=== PATIENT | male | born 1985 | race Caucasian/White ===

== ENCOUNTER 2024-08-03 02:17 | Inpatient (IN) | payer OTHER, SELFPAY ==
[2024-08-03] VITALS (43 sets, daily range): BP systolic 116–155; BP diastolic 81–115; PULSE 104–127; RESP 18–39; TEMP 36.4–36.9; O2SAT 92–100; BMI 27.9
--- NOTE | ~2024-08-03 | US_ITS ---
EXAMINATION: US thoracentesis DATE: 08/04/2024 11:21 INDICATION: Rectal large right pleural effusion TECHNIQUE: The procedure and its risks and benefits were discussed with the patient. Potential risks discussed included bleeding, infection, and pneumothorax. The patient understood the risks and agreed to proceed. The skin was prepped and draped in sterile fashion. 1% lidocaine was used for local anes thesia. Under ultrasound guidance, a 5 Fr catheter with trochar was advanced into the right pleural e ffusion. Fluid was aspirated. The catheter was removed, and a dressing was applied. There were no imm ediate complications. FINDINGS: Ultrasound images demonstrate a moderate-sized right pleural effusion and the catheter within the flu id. IMPRESSION: 1. Successful ultrasound-guided thoracentesis yielding 1100 mL of clear yellow fluid. Reviewed, dictated and finalized at location A.
--- NOTE | ~2024-08-03 | XR_ITS ---
Portable chest x-ray Comparison: 08/03/2024 Clinical History: Labored breathing Findings: There is hazy central pulmonary airspace disease bilaterally, compatible with mild to mode rate central pulmonary edema. No definite pleural effusions. Cardiomediastinal silhouette is stable. Bones and soft tissues are unremarkable. Impression: Mild to moderate central pulmonary edema pattern. Reviewed, dictated and finalized at location . Impression: Mild to moderate central pulmonary edema pattern.
--- NOTE | ~2024-08-03 | XR_ITS ---
Portable chest x-ray Comparison: None Clinical History: Dyspnea Findings: Possible minimal pulmonary edema pattern centrally. Cardiomediastinal silhouette is enlar ged. Bones and soft tissues are unremarkable. Impression: Possible minimal central pulmonary edema. Cardiomegaly. Reviewed, dictated and finalized at [facility]. Impression: Possible minimal central pulmonary edema. Cardiomegaly.
--- NOTE | ~2024-08-03 | CT_ITS ---
Clinical Indication: Tachycardia, abnormal LFTs CT Scan of the Chest, Abdomen, and Pelvis with Contrast: Technique: Contiguous sections were acquired throughout the chest, abdomen, and pelvis after intraven ous administration of 100 cc of Omnipaque 350. Dose reduction technique was used on this scan by nadja diazing automated exposure control and iterative reconstruction technique. The dose-length product (DL P) was 872.04 mGy-cm. Findings: There is no evidence of any significant mediastinal, hilar or axillary lymphadenopathy. The mediastin al soft tissues appear normal. No pulmonary embolus seen. No aortic aneurysm. No pericardial effusion . Moderate to large right pleural effusion, and moderate left pleural effusion are present. There is pa tchy groundglass opacity and airspace consolidation in the aerated lungs. Severe diffuse hepatic steatosis present. The spleen, pancreas, gallbladder, adrenals and kidneys are within normal limits. No evidence of aortic aneurysm. No lymphadenopathy. Questionable mild wall thickening of the sigmoid colon. No distinct inflammatory change evident. No b owel obstruction. No abscess or free air. Urinary bladder is unremarkable. No pelvic mass seen. No ascites. Impression: Moderate to large right pleural effusion and moderate left pleural effusion. Patchy groundglass opacity and airspace consolidation. Lungs. Findings likely represent pulmonary luba ma. Correlate clinically for pneumonia. Severe hepatic steatosis. Questionable mild wall thickening sigmoid colon versus underdistention. Correlate for infectious/infl ammatory colitis. Reviewed, dictated and finalized at [facility]. Impression: Moderate to large right pleural effusion and moderate left pleural effusion. Patchy groundglass opacity and airspace consolidation. Lungs. Findings likely r epresent pulmonary edema. Correlate clinically for pneumonia. Severe hepatic steatosis. Questionable mild wall thickening sigmoid colon versus underdistention. Correla te for infectious/inflammatory colitis.
--- NOTE | ~2024-08-03 | US_ITS ---
Limited ABDOMINAL ULTRASOUND (Doppler ultrasound interrogation techniques used as needed for this exa m.) Ordering provider: Pola Bar MD History: . Elevated LFTs . Comparison: None. FINDINGS: PANCREAS: Heterogeneous and partially visualized. PORTAL VEIN: Hepatopedal flow demonstrated. LIVER: Echogenic. Measures 15.4 cm. Cyst is seen measures 1 x 0.8 x 1 cm. Fat sparing area is seen an terior to the gallbladder. No focal hepatic lesions or perihepatic fluid collections are identified. BILIARY DUCTS: No intra or extrahepatic biliary dilation. Common bile duct measures 4.8 mm in diamete r which is normal for patient's age. GALLBLADDER: Normal. No stones, sludge, gallbladder wall thickening or pericholecystic fluid. Wall th icknesses 2.4 mm. Negative sonographic Womack's sign. IVC: Patent. FREE FLUID: None visualized within the upper abdomen. Right pleural effusion. IMPRESSION: Fat infiltration of the liver. Contracted gallbladder with thickened wall. Cholecystitis cannot be ex cluded. Clinical correlation advised. Otherwise, normal limited abdominal ultrasound. Reviewed, dictated and finalized at location A. IMPRESSION: Fat infiltration of the liver. Contracted gallbladder with thickened wall. Chol ecystitis cannot be excluded. Clinical correlation advised. Otherwise, normal l imited abdominal ultrasound.
--- NOTE | ~2024-08-03 | XR_ITS ---
[id number] Ordering provider: Pola Bar MD History: 39 years Male with . post thora . Comparison: None. FINDINGS: MEDIASTINUM: The cardiac silhouette is slightly enlarged. LUNGS: No infiltrates, effusions or pneumothorax. OTHER: No free air under the diaphragm. IMPRESSION: No acute cardiopulmonary pathology. Reviewed, dictated and finalized at location A.
--- NOTE | 2024-08-03 02:19 | ECG_ITS ---
Test Date: 2024-08-03 02:26:58 Measurements Intervals [place] Rate: 118 P: 29 [place]: 142 QRS: 39 QRSD: 94 T: 58 QT: 316 QTc: 443 Interpretive Statements SINUS TACHYCARDIA BORDERLINE R WAVE PROGRESSION, ANTERIOR LEADS BORDERLINE ST-T WAVE ABNORMALITY- INF/LAT LEADS BASELINE ARTIFACT- I, II, III, AVR, AVL, AVF, V4-V5 ABNORMAL ECG No previous ECG available for comparison Electronically Signed On 08-03-2024 07:11:16 CDT by Ganga Thapa D.O.
--- OUTSIDE RECORDS SUMMARY | 2024-08-03 02:20 | XMS_ITS | Patient Health Record ---
Author Organization [facility] Address [address] [facility] [address] [place] [address] Care Team Providers Care Scientific Artist Name Role Phone Brigid Doyle Primary Care Provider [phone] Reason For Referral No Information Plan Of Treatment No Information Insurance Providers Payer Name Payer Address Payer Phone Subscriber Number Group Number Insured Name Patient Relationship to Insured Coverage Start Date Coverage End Date Medicaid FQHC [address] [place], [place] [id number] Gabe Castillo Self - patient is the insured 1 Medicaid FFS [address], [place] [id number] Gabe Castillo Self - patient is the insured 1 Medicaid Nonbillable [address], [place] [id number] Gabe Castillo Self - patient is the insured 1
--- OUTSIDE RECORDS SUMMARY | 2024-08-03 02:20 | XMS_ITS | Continuity of Care Document ---
Author Organization [facility] Address [address] [place] [address] [place] [address] Phone Care Team Providers Care Microbiology Lab Analyst Name Role Phone Rodney Orona MD Unavailable Unavailable Allergies, Adverse Reactions, Alerts Substance Reaction Status Criticality No Known Allergies Active No Inform ation Medications Medication Instructions Dosage Effective Dates (start - stop) Status Comments Cipro 500 mg tablet take 1 tablet (500MG ) by oral route every 12 hours 500 MG - Active buspirone 7.5 mg tablet take 1 tablet (7.5MG) by oral route 2 times every day 7.5 MG - Active Procedures Procedure Date PREV VISIT, NEW, AGE 18-39 Advance Directives Directive Yes / No Effective Date File Name No Information Encounters Encounter Description Practice Location Reason(s) For Visit Diagnoses Date Provider Providers Copied on Encounter PREV VISIT, NEW, AGE 18-39 [facility], [address] [facility] [place], [id number], [place] tel:[phone] [facility] Physical (chief complaint) Routine Medical ExamRoutine Medical Exam Yeyo Stevens. [address] [facility] [place], [id number], [place]. tel:[phone] Family History Family Member Type Diagnosis Age At Onset Father Problem (finding) Stroke 68 Sister Problem (finding) Alive and well Father Problem (finding) Cancer -colon 56 Father Problem (finding) Coronary artery disease 55 Mother Problem (finding) Stroke 55 Payers Payer name Insurance type Covered libertarian ID Authoriza tion(s) No Information Social History Type Description Quantity Date Captured Comments Alcohol Use Details 4 beers daily Caffeine Use Details Unknown Tobacco Use Status No Information Smoking Status Current every day smoker Smoking Tobacco Use Details Cigarette: No Details Available Cigarette: 0 Packs per day Sex Male Vital Signs Date / Time: Height Weight BMI Pulse Rate Blood Pressure Temperature Respiratory Rate Body Surface Area Head Circumference BMI percentile Pulse Ox Inhaled Ox 5:18 PM 65.00 in 148.00 lbs 24.6 3 kg/m eter (2) 77 /min 135/80 mm[Hg] 98.4 F 16 /min Chief Complaint And Reason For Visit From encounter dated '12/01/2013 17:11'. Physical (chief complaint) Plan Of Treatment Date Type Action Status Goal Tobacco cessation counseling completed Referral Ordered: Pain Management ordered Referral Ordered: Referral: Pain Management. Evaluate and treat. ordered Referral Ordered: LUMBAR XRAY AP AND LAT ONLY ordered History Of Present Illness Encounter Date Complaint History Of Prese nt Illness No Information Instructions Date Instruction Additional Infor mation No Information Assessments Type Assessment Date No Information Mental Status Date Cognitive Assessment Orientation - Grabill ed to time, place, person, situation.
--- NOTE | 2024-08-03 02:31 | ED.SOB ---
HPI - SOB/Dyspnea General Chief Complaint: Shortness of Breath/Dyspnea Stated Complaint: sob, pedal edema Time Seen by Provider: 08/03/24 02:19 History of Present Illness HPI Narrative: Patient states he was in normal state of health until about 3 weeks ago, when he came down with a bad cough, and since then has had persistent shortness of breath, swelling to his legs and some to his abdomen. Denies any pain. Does report occasional methamphetamine use and prior history of IV heroin use but last IV drug use was 10 years ago. Never had any personal history of heart, liver, or kidney disease, though he does report heavy alcohol use, family history of heart disease. Related Data Allergies Allergy/AdvReac Type Severity Reaction Status Date / Time No Known Allergies Allergy Unknown Verified 08/03/24 03:18 Review of Systems Review of Systems: All systems reviewed & are unremarkable except as noted in HPI and below Exam Narrative: EXAMINATION OF ORGAN SYSTEMS/BODY AREAS: Constitutional: Vital signs per nursing GENERAL: Slightly dyspneic HEAD: Normal with no signs of head trauma. EYES: Some injected conjunctiva, right pterygium ENT: Hearing grossly intact LUNGS: Slightly tachypneic, wheezing HEART: Tachycardic ABD: [Soft], [nontender to palpation], distended EXT: Normal range of motion, bilateral lower extremity edema SKIN: Some bruising bilateral knees NEURO: [Alert and oriented x 3. No gross focal sensory or strength deficits.] PSYCH: Normal affect Course Vital Signs Vital signs: Vital Signs Temperature 98.4 F 08/03/24 02:21 Pulse Rate 118 H 08/03/24 02:21 Respiratory Rate 20 08/03/24 02:21 Blood Pressure 144/115 H 08/03/24 02:21 Pulse Oximetry 100 08/03/24 02:21 Oxygen Delivery Room Air 08/03/24 02:21 Temperature 98.0 F 08/03/24 05:05 Pulse Rate 112 H 08/03/24 06:38 Respiratory Rate 24 H 08/03/24 06:38 Blood Pressure 131/108 H 08/03/24 06:38 Pulse Oximetry 95 08/03/24 06:38 Oxygen Delivery Room Air 08/03/24 02:24 MDM - SOB/Dyspnea MDM Narrative Medical decision making narrative: 39-year-old male presenting with shortness of breath, started after a cough 3 weeks ago, also having increased abdominal distention and bilateral lower extremity swelling. No prior medical history but he does admit to heavy daily alcohol use, remote history of IV drug use, and occasional methamphetamine use. On exam he is tachycardic, slightly dyspneic, but otherwise does not appear to be in distress, denies any pain. I have a very wide differential including possible infectious cause such as pneumonia or viral myocarditis or potentially endocarditis though patient IV drug use is extremely remote; new onset heart failure from potential meth or alcoholic cardiomyopathy; cirrhosis or kidney failure. He is also wheezing and has smoking history so also considered COPD. EKG on my independent interpretation shows sinus tachycardia rate 118, MT 142, QRS 94, QTC 443, no ST elevations depressions or signs of acute ischemia or arrhythmia. Xopenex given. Chest x-ray on my independent interpretation showing some possible cardiomegaly and pulm vasc congestion. Labs concerning for elevated troponin 0.07 however patient without chest pain and EKG without acute ischemic changes, I suspect this is more likely from new onset heart failure with BNP over 12,000. LFTs also quite elevated with AST 700 ALT 350 consistent with likely alcoholic hepatitis. A slightly elevated white count and this with the tachycardia and slight cough I did feel it necessary to start broad-spectrum antibiotics at this time. I did feel CT warranted for further evaluation and my independent interpretation there is large amount of pulmonary edema bilaterally, I do feel patient would benefit from diuresis. Lasix ordered. It this is also his 1st time coming down on the alcohol use so I did also opt to treat for possible withdrawal. Librium given, he was still uncomfortable, I did order phenobarbital. Discussed all findings and plan with patient and he is agreeable to admission. After phenobarb he feels much better. Resting comfortably in bed. Discussed with hospitalist for admission, consult placed to GI and Cardiology. Lab Data 08/03/24 02:28 08/03/24 02:28 Labs: Lab Results 08/03/24 08/03/24 08/03/24 Range/Units 02:28 02:42 02:43 WBC 11.3 H (4.5-10.0) K/mm3 RBC 4.52 L (4.6-6.20) M/mm3 Hgb 15.0 (14.0-18.0) g/dL Hct 46.5 (42.0-52.0) % MCV 102.9 H (80-100) fl MCH 33.2 (26-34) pg MCHC 32.3 (32-36) g/dl RDW 14.3 (11.5-14.5) % Plt Count 280 (150-375) k/mm3 MPV 12.2 H (7.4-10.4) fl Immature Gran % (Auto) 0.8 H (0-0.5) % Neut % (Auto) 80.7 H (45.5-73.1) % Lymph % (Auto) 8.5 L (18.3-44.2) % [place] % (Auto) 9.5 H (2.6-8.5) % Eos % (Auto) 0.0 (0-4.4) % Baso % (Auto) 0.5 (0.2-1.2) % Lymph # (Auto) 0.96 (0.9-3.2) K/mm3 [place] # (Auto) 1.1 H (0.1-0.6) K/mm3 Eos # (Auto) 0.0 (0-0.3) K/mm3 Baso # (Auto) 0.1 (0.0-0.1) K/mm3 Abs Immat Gran (auto) 0.09 H (0.00-0.031) K/mm3 Absolute Neuts (auto) 9.1 H (1.3-6.7) K/mm3 Absolute Nucleated RBC 0.020 H (0.0-0.012) K/mm3 Nucleated RBC % 0.2 (0.0-0.2) % PT 16.7 H (11.1-14.7) Seconds INR 1.4 APTT 27.2 (22.3-36.8) Seconds Sodium 132 L (137-145) mmol/L Potassium 4.3 (3.4-5.0) mmol/L Chloride 96 L (98-107) mmol/L Carbon Dioxide 20 L (22-30) mmol/L Anion Gap 16 H (4-12) mmol/L BUN 26 H (9-20) mg/dL Creatinine 1.09 (0.7-1.3) mg/dL Estim Creat Clear Calc 81 ml/min Estimated GFR > 60 (59 - ) Glucose 107 (65-110) mg/dL Lactic Acid 4.4 H* (0.7-2.0) mmol/L Calcium 8.7 (8.4-10.2) mg/dL Magnesium 2.1 (1.6-2.3) mg/dL Total Bilirubin 3.5 H (0.2-1.3) mg/dL AST 697 H (17-59) U/L ALT 352 H (6-50) U/L Alkaline Phosphatase 148 H (38-126) U/L Ammonia 15 (9-30) umol/L Troponin I 0.071 H* (0.000-0.034) ng/mL NT-Pro-B Natriuret Pep 95129 H (19.9-100) pg/mL Total Protein 6.6 (6.3-8.2) g/dL Albumin 3.8 (3.5-5.1) g/dL Urine Opiates Screen (Negative) Urine Methadone Screen (Negative) Ur Barbiturates Screen (Negative) Ur Phencyclidine Scrn (Negative) Ur Amphetamine Screen (Negative) U Benzodiazepines Scrn (Negative) Urine Cocaine Screen (Negative) U Cannabinoids Screen (Negative) Ethyl Alcohol 93 (<10) mg/dL Hepatitis A IgM Ab Negative (Negative) Hep Bs Antigen Negative (Negative) Hep B Core IgM Ab Negative (Negative) Hepatitis C Ab Screen Negative (Negative) HIV 1&2 Ab/P24 Ag 4thGn Negative (Negative) 08/03/24 Range/Units 03:50 WBC (4.5-10.0) K/mm3 RBC (4.6-6.20) M/mm3 Hgb (14.0-18.0) g/dL Hct (42.0-52.0) % MCV (80-100) fl MCH (26-34) pg MCHC (32-36) g/dl RDW (11.5-14.5) % Plt Count (150-375) k/mm3 MPV (7.4-10.4) fl Immature Gran % (Auto) (0-0.5) % Neut % (Auto) (45.5-73.1) % Lymph % (Auto) (18.3-44.2) % [place] % (Auto) (2.6-8.5) % Eos % (Auto) (0-4.4) % Baso % (Auto) (0.2-1.2) % Lymph # (Auto) (0.9-3.2) K/mm3 [place] # (Auto) (0.1-0.6) K/mm3 Eos # (Auto) (0-0.3) K/mm3 Baso # (Auto) (0.0-0.1) K/mm3 Abs Immat Gran (auto) (0.00-0.031) K/mm3 Absolute Neuts (auto) (1.3-6.7) K/mm3 Absolute Nucleated RBC (0.0-0.012) K/mm3 Nucleated RBC % (0.0-0.2) % PT (11.1-14.7) Seconds INR APTT (22.3-36.8) Seconds Sodium (137-145) mmol/L Potassium (3.4-5.0) mmol/L Chloride (98-107) mmol/L Carbon Dioxide (22-30) mmol/L Anion Gap (4-12) mmol/L BUN (9-20) mg/dL Creatinine (0.7-1.3) mg/dL Estim Creat Clear Calc ml/min Estimated GFR (59 - ) Glucose (65-110) mg/dL Lactic Acid (0.7-2.0) mmol/L Calcium (8.4-10.2) mg/dL Magnesium (1.6-2.3) mg/dL Total Bilirubin (0.2-1.3) mg/dL AST (17-59) U/L ALT (6-50) U/L Alkaline Phosphatase (38-126) U/L Ammonia (9-30) umol/L Troponin I (0.000-0.034) ng/mL NT-Pro-B Natriuret Pep (19.9-100) pg/mL Total Protein (6.3-8.2) g/dL Albumin (3.5-5.1) g/dL Urine Opiates Screen Negative (Negative) Urine Methadone Screen Negative (Negative) Ur Barbiturates Screen Negative (Negative) Ur Phencyclidine Scrn Negative (Negative) Ur Amphetamine Screen Positive A (Negative) U Benzodiazepines Scrn Negative (Negative) Urine Cocaine Screen Negative (Negative) U Cannabinoids Screen Negative (Negative) Ethyl Alcohol (<10) mg/dL Hepatitis A IgM Ab (Negative) Hep Bs Antigen (Negative) Hep B Core IgM Ab (Negative) Hepatitis C Ab Screen (Negative) HIV 1&2 Ab/P24 Ag 4thGn (Negative) Critical Care Time Critical Care Time Critical Care Time: Yes Total Critical Care Time: 31 Discharge Plan Discharge Clinical Impression: Alcoholic hepatitis, New onset of congestive heart failure, Methamphetamine abuse, Pulmonary edema Patient Disposition: Still a Patient Condition: Serious Patient Language: Mohawk Follow-up/Referrals: UNKNOWN,DOCTOR [Non-Staff] -
--- OUTSIDE RECORDS SUMMARY | 2024-08-03 02:38 | XMS_ITS | Continuity of Care Document ---
Author Organization [facility] Address [address] [place] [address] [place] [address] Phone Care Team Providers Care Family Resource Coordinator Name Role Phone Rodney Orona MD Unavailable Unavailable Allergies, Adverse Reactions, Alerts Substance Reaction Status Criticality No Known Allergies Active No Inform ation Medications Medication Instructions Dosage Effective Dates (start - stop) Status Comments buspirone 7.5 mg tablet take 1 tablet (7.5MG) by oral route 2 times every day 7.5 MG - Active Cipro 500 mg tablet take 1 tablet (500MG ) by oral route every 12 hours 500 MG - Active Procedures Procedure Date PREV VISIT, NEW, AGE 18-39 Advance Directives Directive Yes / No Effective Date File Name No Information Encounters Encounter Description Practice Location Reason(s) For Visit Diagnoses Date Provider Providers Copied on Encounter PREV VISIT, NEW, AGE 18-39 [facility], [address] [place], [id number], [place] tel:[phone] [facility] Physical (chief complaint) Routine Medical ExamRoutine Medical Exam Yeyo Stevens. [address] [facility] [place], [id number], [place]. tel:[phone] Family History Family Member Type Diagnosis Age At Onset Father Problem (finding) Stroke 68 Sister Problem (finding) Alive and well Father Problem (finding) Cancer -colon 56 Father Problem (finding) Coronary artery disease 55 Mother Problem (finding) Stroke 55 Payers Payer name Insurance type Covered green party ID Authoriza tion(s) No Information Social History [...] Mental Status Date Cognitive Assessment Orientation - [place] ed to time, place, person, situation.
[2024-08-03 02:51] LABS: Basophils Absolute Auto 0.1 K/mm3 (0.0-0.1); Basophils Percent Auto 0.5 % (0.2-1.2); Hematocrit 46.5 % (42.0-52.0); Immature Granulocyte Absolute 0.09 K/mm3 (0.00-0.031); Immature Granulocyte Percent A 0.8 % (0-0.5); Lymphocytes Absolute Auto 0.96 K/mm3 (0.9-3.2); Lymphocytes Percent Auto 8.5 % (18.3-44.2); Mean Corpuscular HGB Conc 32.3 g/dl (32-36); Mean Corpuscular Hemoglobin 33.2 pg (26-34); Mean Corpuscular Volume 102.9 fl (80-100); Mean Platelet Volume 12.2 fl (7.4-10.4); Monocytes Absolute Auto 1.1 K/mm3 (0.1-0.6); Monocytes Percent Auto 9.5 % (2.6-8.5); Neutrophils Absolute Auto 9.1 K/mm3 (1.3-6.7); Neutrophils Percent Auto 80.7 % (45.5-73.1); Nucleated Red Blood Cells Perc 0.2 % (0.0-0.2); Platelet Count Result 280 k/mm3 (150-375); Red Blood Count 4.52 M/mm3 (4.6-6.20); Red Cell Distribution Width 14.3 % (11.5-14.5); White Blood Count 11.3 K/mm3 (4.5-10.0)
[2024-08-03 03:06] LABS: Ammonia 15 umol/L (9-30)
[2024-08-03 03:08] LABS: Alanine Aminotransferase 352 U/L (6-50); Albumin Level 3.8 g/dL (3.5-5.1); Alkaline Phosphatase 148 U/L (38-126); Anion Gap 16 mmol/L (4-12); Aspartate Amino Transferase 697 U/L (17-59); Bilirubin,Total 3.5 mg/dL (0.2-1.3); Blood Urea Nitrogen 26 mg/dL (9-20); Calcium 8.7 mg/dL (8.4-10.2); Carbon Dioxide 20 mmol/L (22-30); Chloride 96 mmol/L (98-107); Estimated CRCL calculation 81 ml/min; Estimated Glomerular Filt Rate > 60; Glucose 107 mg/dL (65-110); Magnesium 2.1 mg/dL (1.6-2.3); Potassium 4.3 mmol/L (3.4-5.0); Sodium 132 mmol/L (137-145); Total Protein 6.6 g/dL (6.3-8.2)
[2024-08-03 03:09] LABS: Lactic Acid Reflex 4.4 mmol/L (0.7-2.0)
[2024-08-03 03:10] LABS: INR 1.4; Partial Thromboplastin Time 27.2 Seconds (22.3-36.8); Prothrombin Time 16.7 Seconds (11.1-14.7)
[2024-08-03 03:13] LABS: Ethanol 93 mg/dL (<10)
[2024-08-03] MEDS: CEFEPIME 2 GM/NS 50 ML 2 GM/50 ML BAG IVPB (03:17)
[2024-08-03 03:26] LABS: NT Pro B Type Natriuretic Pept 12100 pg/mL (19.9-100); Troponin I 0.071 ng/mL (0.000-0.034)
[2024-08-03] MEDS: FUROSEMIDE INJ 40 MG/4 ML VIAL IV PUSH (03:34)
[2024-08-03 03:38] LABS: Hepatitis B Surface Antigen Negative (Negative)
[2024-08-03 03:44] LABS: HAV RESULT Negative (Negative); Hepatitis B Core IgM Result Negative (Negative)
[2024-08-03] MEDS: chlordiazePOXIDE (*CRX) 25 MG CAPSULE PO ×2 (03:46→20:40)
[2024-08-03] MEDS: VANCOMYCIN 1,250 MG/NS 250 ML 1,250 MG/250 ML BAG 166.67 MG IVPB (03:46)
[2024-08-03 03:50] LABS: HIV 1/2 Ab P24 Ag Result Negative (Negative)
[2024-08-03 03:55] LABS: Hepatitis C Virus Antibody Negative (Negative)
[2024-08-03] MEDS: LEVALBUTEROL NEB 1.25 MG/3 ML 3.75 MG INHALATION (03:57)
--- NOTE | 2024-08-03 04:17 | PCRCNOTE ---
Duoneb nebulizer cancelled due to patients high heart rate. Dr Gregory changed order to [employer]
[2024-08-03 04:50] LABS: Barbiturate Screen Urine Negative (Negative); Benzodiazepines Screen Urine Negative (Negative); Cannabinoid Screen Urine Negative (Negative); Cocaine Screen Urine Negative (Negative); Methadone Screen Urine Negative (Negative); Opiate Screen Urine Negative (Negative); Phencyclidine Screen Urine Negative (Negative)
[2024-08-03 04:55] LABS: Reflex Lactic Acid Yes or No Add Lactic
[2024-08-03 05:18] LABS: Amphetamine Screen Urine Positive (Negative)
[2024-08-03] MEDS: VANCOMYCIN 1,000 MG/NS 250 ML 1,000 MG/250 ML BAG 250 MG IVPB (05:21)
--- NOTE | 2024-08-03 05:27 | PC.NURSE ---
ERP gave VORB to cancel reflex lactic order. Order was cancelled per VORB.
--- NOTE | 2024-08-03 05:56 | PC.NURSE ---
Pt complained of being hot and restless. Patients CIWA reassessed, ERP notified and orders placed.
[2024-08-03] MEDS: PHENobarbitaL sodium (*CRX) 130 MG/ML VIAL 260 MG IV PUSH (06:11)
--- NOTE | 2024-08-03 06:44 | ECG_ITS ---
Test Date: 2024-08-03 07:02:25 Measurements Intervals [place] Rate: 110 P: 54 TN: 154 QRS: 64 QRSD: 93 T: 95 QT: 340 QTc: 461 Interpretive Statements SINUS TACHYCARDIA POSSIBLE LEFT ATRIAL ENLARGEMENT BORDERLINE R WAVE PROGRESSION, ANTERIOR LEADS NONSPECIFIC ST & T-WAVE ABNORMALITY- LAT/HIGH LAT LEADS BASELINE ARTIFACT- I, III, AVR, AVL, AVF, V4-V6 ABNORMAL ECG Compared to ECG 08/03/2024 02:26:58 NO SIGNIFICANT CHANGE Electronically Signed On 08-03-2024 07:12:10 CDT by Ganga Thapa D.O.
[2024-08-03 07:07] LABS: Lactic Acid Reflex 3.2 mmol/L (0.7-2.0)
[2024-08-03 07:25] LABS: Troponin I 0.073 ng/mL (0.000-0.034)
--- NOTE | 2024-08-03 08:10 | PC.NURSE ---
Patient began feeling anxious and having tremors. This RN performed a CIWA and called hospitalist, Dr Bar, and was given verbal order for 2mg ativan IV push for his CIWA score of 18.
[2024-08-03] MEDS: LORazepam INJ (*CRX) 2 MG/ML VIAL IV PUSH ×3 (08:13→20:34)
--- NOTE | 2024-08-03 08:31 | ADMGEN ---
This patient, Gabe Castillo, was admitted to IMU Room 205-02 @ 0831. Patient/family oriented to hospital policies and general routines including ID bracelet, bed and alarms, visiting hours, pain management, procedures, bathroom and other care routines, personal items, smoking policy, room service/diet, and visiting hours. Information on how to activate the Rapid Response Team has been discussed. Patient/Family are encouraged to report perceived risks to care and to ask questions if they do not understand what they are told or what they should do.
[2024-08-03 10:23] LABS: Troponin I 0.069 ng/mL (0.000-0.034)
--- OUTSIDE RECORDS SUMMARY | 2024-08-03 10:56 | XMS_ITS | Continuity of Care Document ---
Author Organization [facility] Address [address] [place] [address] Phone Care Team Providers Care Technical Publications Manager Name Role Phone Rodney Orona MD Unavailable [...] on Encounter PREV VISIT, NEW, AGE 18-39 [facility], [address] [facility] [place], [place], [id number], [place] tel:[phone] [facility] Physical (chief complaint) Routine Medical ExamRoutine Medical Exam Yeyo Stevens. [address] [facility] [facility] [place], [place], [id number], [place]. tel:[phone] Family History Family Member Type Diagnosis Age At Onset Father Problem (finding) Stroke 68 Sister Problem (finding) Alive and well Father Problem (finding) Cancer -colon 56 Father Problem (finding) Coronary artery disease 55 Mother Problem (finding) Stroke 55 Payers Payer name Insurance type Covered democrat ID Authoriza tion(s) No Information Social History [...] Mental Status Date Cognitive Assessment Orientation - [place] ed to time, place, person, situation.
--- NOTE | 2024-08-03 11:08 | P.CONCA_ITS ---
Assessment and Plan Assessment and plan (1) New onset of congestive heart failure: Code(s): I50.9 - Heart failure, unspecified Status: Acute Assessment and Plan: Patient likely has acute systolic congestive heart failure. 2D echocardiogram with Doppler [place] [address] and has some pulmonary vascular congestion by chest x-ray. He has cardiomegaly. Etiology of his CHF includes and most likely related to alcohol use plus/minus methamphetamine use plus/minus recent viral infection. Furosemide 20 mg IV daily will be started, carvedilol 3.125 mg p.o. twice daily. Will start losartan as well 12.5 mg p.o. daily. Can add to this regimen including spironolactone and Jardiance/Farxiga depending on how he responds and affordability. He also has significant pleural effusions and may need to undergo thoracentesis. (2) Alcohol abuse: Code(s): F10.10 - Alcohol abuse, uncomplicated Status: Acute Assessment and Plan: Severe alcohol abuse. Counseling was performed. Alcohol withdrawal precautions (3) Methamphetamine abuse: Code(s): F15.10 - Other stimulant abuse, uncomplicated Status: Acute Assessment and Plan: Several times per week use (4) Alcoholic hepatitis: Code(s): K70.10 - Alcoholic hepatitis without ascites Status: Acute Assessment and Plan: Significant alcohol use. Alcohol withdrawal precautions as well as thiamine and folic acid replacement should prescribed but will defer this to the hospitalist (5) Elevated troponin: Code(s): R79.89 - Other specified abnormal findings of blood chemistry Status: Acute Assessment and Plan: Troponins are likely secondary to heart failure and not from acute plaque rupture. (6) Lactic acidosis: Code(s): E87.20 - Acidosis, unspecified Status: Acute Assessment and Plan: Improving from 4.4 down to 3.2 History of Present Illness History of Present Illness Consult date/time: 08/03/24 11:08 Requesting physician: July Gregory MD Consult reason: congestive heart failure Reason For Visit: New CHF, (ETOH OR meth induced?), ETOH w/drawal Narrative: Reason for consultation: CHF, alcohol use, drug use Date of service 08/03/2024 Requesting provider: Dorie Gregory History patient is a 39-year-old male who uses methamphetamines 3 or 4 times per week. He also drinks alcohol daily. He will drink up to 25-30 little bottles of vodka daily. He does also vape. He does have GERD but no prior health history. Came to the hospital because of generalized weakness, shortness of breath and swelling. He is somnolent but does awaken. History is predominantly obtained from his significant other. She states that he had an upper respiratory tract infection about 3 weeks ago and shortly thereafter he started to feel poorly. He had no chest pain. No syncope or presyncope. He progressively became more short of breath, had more swelling especially in his lower legs and abdomen as well as generalized fatigue. Has had some episodes of paroxysmal nocturnal dyspnea also. No palpitations. He came to the hospital for further workup evaluation in BNP was over 12,000. Troponins were minimally elevated without significant rise or fall. EKG is unremarkable without at acute ST or T-wave abnormalities. Liver enzymes are significantly elevated. Lactic acid also elevated up to 4.4. Review of Systems 2 Review of Systems: All systems reviewed & are unremarkable except as noted in HPI and below Constitutional: Constitutional: Reports fatigue and Reports weakness Eyes: Eyes: Denies blurry vision ENT: Reports Normal hearing present Cardiovascular: Cardiovascular: Denies chest pain and Reports leg edema Respiratory: Respiratory: Denies hemoptysis and Reports dyspnea Gastrointestinal: Gastrointestinal: Denies abdominal pain and Reports bloating Genitourinary: Genitourinary: Denies hematuria Musculoskeletal: Musculoskeletal: Denies back pain Integumentary/Breasts: Skin/Breast: Denies dry skin Neurologic: Reports Abnormal speech present Psychiatric: Psychiatric: Denies anxiety Endocrine: Endocrine: Denies excessive sweating Hematologic/Lymphatic: Hematologic/Lymphatic: Denies easy bleeding Allergic/Immunologic: Allergic/Immunologic: Denies GI upset with certain foods PMFSH Past Medical History Medical History (Updated 08/03/24 @ 11:18 by Blake Jara MD) GERD (gastroesophageal reflux disease) Alcohol abuse Methamphetamine abuse Family History Family History (Updated 08/03/24 @ 11:14 by Blake Jara MD) Mother COPD (chronic obstructive pulmonary disease) Social History Social History Smoking status: Current every day smoker Tobacco type: e-cigarettes/vaping Alcohol intake: current Substance use: current Substance use type: IV drugs and methamphetamine Spiritual care concerns: No Meds Home Medications and Allergies Home Medications ?Medication ?Instructions ?Recorded ?Confirmed ?Type No Home Medications 08/03/24 08/03/24 History Allergies Allergy/AdvReac Type Severity Reaction Status Date / Time No Known Allergies Allergy Unknown Verified 08/03/24 03:18 Vital Signs Vital Signs - 24 hr 08/03/24 02:21 08/03/24 02:24 08/03/24 02:24 Temperature 36.9 C Pulse Rate 118 H 122 H Respiratory Rate 20 Blood Pressure 144/115 H Pulse Oximetry 100 100 Oxygen Delivery Room Air Room Air 08/03/24 02:24 08/03/24 02:28 08/03/24 02:30 Temperature 36.9 C Pulse Rate 120 H 120 H 118 H Respiratory Rate 29 H 28 H 28 H Blood Pressure 144/115 H Pulse Oximetry 100 98 99 Oxygen Delivery 08/03/24 02:31 08/03/24 02:45 08/03/24 03:03 Temperature Pulse Rate 120 H 116 H 118 H Respiratory Rate 31 H 39 H 30 H Blood Pressure 142/109 H 137/86 Pulse Oximetry 100 100 Oxygen Delivery 08/03/24 03:05 08/03/24 03:15 08/03/24 03:31 Temperature Pulse Rate 116 H 116 H 121 H Respiratory Rate 21 H 31 H 32 H Blood Pressure 137/86 Pulse Oximetry 97 97 99 Oxygen Delivery 08/03/24 03:38 08/03/24 03:45 08/03/24 03:53 Temperature Pulse Rate 118 H 126 H 120 H Respiratory Rate 23 H 32 H 25 H Blood Pressure 155/97 H 140/109 H Pulse Oximetry 96 98 Oxygen Delivery 08/03/24 03:54 08/03/24 04:00 08/03/24 04:01 Temperature Pulse Rate 122 H 127 H 120 H Respiratory Rate 32 H 35 H 19 Blood Pressure Pulse Oximetry 99 Oxygen Delivery 08/03/24 04:12 08/03/24 04:15 08/03/24 04:30 Temperature Pulse Rate 118 H 120 H 119 H Respiratory Rate 25 H 34 H 20 Blood Pressure Pulse Oximetry 95 Oxygen Delivery 08/03/24 04:45 08/03/24 05:00 08/03/24 05:05 Temperature 36.7 C Pulse Rate 121 H 113 H 114 H Respiratory Rate 29 H 33 H 21 H Blood Pressure 135/98 H Pulse Oximetry 93 93 94 Oxygen Delivery 08/03/24 05:06 08/03/24 05:15 08/03/24 05:16 Temperature Pulse Rate 112 H 109 H 110 H Respiratory Rate 29 H 22 H 24 H Blood Pressure 127/99 H Pulse Oximetry 98 96 97 Oxygen Delivery 08/03/24 05:45 08/03/24 06:38 08/03/24 07:10 Temperature Pulse Rate 104 H 112 H 108 H Respiratory Rate 30 H 24 H 24 H Blood Pressure 131/108 H 128/81 Pulse Oximetry 99 95 96 Oxygen Delivery 08/03/24 08:41 Temperature 36.9 C Pulse Rate 107 H Respiratory Rate 28 H Blood Pressure 126/94 H Pulse Oximetry 95 Oxygen Delivery Exam 2 Narrative: He is confused but does awaken and answers a few questions but goes back to sleep. Appears stated age Const: General: comfortable and no acute distress HENMT: Face/Nose/Sinus: Normal nares present Mouth: Yes moist mucous membranes Eyes: Sclera: sclerae normal Neck: Neck: supple and no JVD Chest: Other: No reproducible chest wall pain to palpation Resp: Effort & Inspection: normal respiratory effort Auscultation: clear to auscultation bilaterally Cardio: Rate: regular rate Rhythm: regular rhythm Heart sounds: no murmurs GI: Inspection: non-distended GI Palp: Yes Soft to palpation Skin: General skin exam: normal color Neuro: Speech: normal speech Sensory Exam: normal sensation Extrem: General: edema Other: 1+ bilateral lower extremity edema Psych: Mental Status: mental status grossly abnormal Attitude: not belligerent Results Labs and Meds 08/03/24 02:28 08/03/24 02:28 Lab results: Cardiac Enzymes 08/03/24 08/03/24 08/03/24 Range/Units 02:28 06:53 09:48 AST 697 H (17-59) U/L Troponin I 0.071 H* 0.073 H* 0.069 H* (0.000-0.034) ng/mL Coagulation 08/03/24 Range/Units 02:42 PT 16.7 H (11.1-14.7) Seconds APTT 27.2 (22.3-36.8) Seconds CBC 08/03/24 Range/Units 02:28 WBC 11.3 H (4.5-10.0) K/mm3 RBC 4.52 L (4.6-6.20) M/mm3 Hgb 15.0 (14.0-18.0) g/dL Hct 46.5 (42.0-52.0) % Plt Count 280 (150-375) k/mm3 Lymph # (Auto) 0.96 (0.9-3.2) K/mm3 [place] # (Auto) 1.1 H (0.1-0.6) K/mm3 Eos # (Auto) 0.0 (0-0.3) K/mm3 Baso # (Auto) 0.1 (0.0-0.1) K/mm3 Comprehensive Metabolic Panel 08/03/24 Range/Units 02:28 Sodium 132 L (137-145) mmol/L Potassium 4.3 (3.4-5.0) mmol/L Chloride 96 L (98-107) mmol/L Carbon Dioxide 20 L (22-30) mmol/L BUN 26 H (9-20) mg/dL Creatinine 1.09 (0.7-1.3) mg/dL Glucose 107 (65-110) mg/dL Calcium 8.7 (8.4-10.2) mg/dL AST 697 H (17-59) U/L ALT 352 H (6-50) U/L Alkaline Phosphatase 148 H (38-126) U/L Total Protein 6.6 (6.3-8.2) g/dL Albumin 3.8 (3.5-5.1) g/dL Intake and Output 08/02/24 08/03/24 08/03/24 23:59 07:59 15:59 Intake Total 550 Balance 550 Intake: IV 550 Cefepime 2 gm/Ns 50 ml 2 gm In 50 50 ml @ 100 mls/hr IVPB ONCE STA Rx#:[id number] Vancomycin 1,000 mg/Ns 250 ml 1 250 ,000 mg In 250 ml @ 250 mls/hr IVPB ONCE ONE Rx#:[id number] Vancomycin 1,250 mg/Ns 250 ml 1 250 ,250 mg In 250 ml @ 166.667 mls /hr IVPB ONCE ONE Rx#:[id number] Patient Weight 08/03/24 23:59 Weight 78.5 kg EKG is personally reviewed and independently interpreted showing normal sinus rhythm/sinus tachycardia with nonspecific T-wave abnormality. Abnormal ECG Chest x-ray shows is cardiomegaly
--- NOTE | 2024-08-03 11:34 | P.HP_ITS ---
H&P: HPI History of Present Illness Date/Time: 08/03/24 11:34 Chief Complaint: sob, pedal edema Narrative: Patient is a 39-year-old male no significant past medical history visited ER due to shortness of breath, pedal edema. As per ED document patient was in the normal state of health until about 3 weeks ago and started having bad cough associated with shortness of breath, swelling to his leg and some to his abdomen. Pertinent ED labs: WBC 11.3, hemoglobin 15, hematocrit 46.5, MCV 102.9, platelet 280, sodium 132, potassium 4.3, chloride 96, bicarb 20 LFT: AST 697, ALT 352, alkaline phosphate 149, total bili 3.5 Troponin: 0.071> 0.073< 0.069 BNP: 23386 UDS positive for amphetamine Patient is admitted in the setting of elevated troponin, alcohol withdrawal, pedal edema. Patient probably has undiagnosed heart failure possibly due to alcohol abuse and methamphetamine use. Patient reports a recently she had a cough which is associated with shortness of breath. Patient denies using IV drugs for past 9-10 years. In regards to elevated troponin cardiology was cons ulted and ordered echocardiogram and further management according to the results of echocardiogram. Also patient is started on furosemide 20 mg IV q.d., losartan 12.5 mg p.o. q.d. and carvedilol 3.125 p.o. b.i.d, . He patient drinks vodka daily about 15 to 20 small bottles. Patient started on in tapering dose of Librium and CIWA triggered Ativan. In regards to elevated LFT GI is consulted. Elevation of the liver enzymes consistent with the alcoholism. [facility] Past Medical History Medical History (Updated 08/03/24 @ 14:39 by Darrel Braga MD) Pleural effusion Elevated liver enzymes GERD (gastroesophageal reflux disease) Alcohol abuse Methamphetamine abuse Family History Family History (Updated 08/03/24 @ 11:14 by Blake Jara MD) Mother COPD (chronic obstructive pulmonary disease) Social History Social History Smoking status: Current every day smoker Tobacco type: e-cigarettes/vaping Alcohol intake: current Substance use: current Substance use type: IV drugs and methamphetamine Spiritual care concerns: No Meds Home Medications and Allergies Home Medications ?Medication ?Instructions ?Recorded ?Confirmed ?Type No Home Medications 08/03/24 08/03/24 History Allergies Allergy/AdvReac Type Severity Reaction Status Date / Time No Known Allergies Allergy Unknown Verified 08/03/24 03:18 Vital Signs Vital Signs - 24 hr 08/03/24 02:21 08/03/24 02:24 08/03/24 02:24 Temperature 98.4 F Pulse Rate 118 H 122 H Respiratory Rate 20 Blood Pressure 144/115 H Pulse Oximetry 100 100 Oxygen Delivery Room Air Room Air 08/03/24 02:24 08/03/24 02:28 08/03/24 02:30 Temperature 98.4 F Pulse Rate 120 H 120 H 118 H Respiratory Rate 29 H 28 H 28 H Blood Pressure 144/115 H Pulse Oximetry 100 98 99 Oxygen Delivery 08/03/24 02:31 08/03/24 02:45 08/03/24 03:03 Temperature Pulse Rate 120 H 116 H 118 H Respiratory Rate 31 H 39 H 30 H Blood Pressure 142/109 H 137/86 Pulse Oximetry 100 100 Oxygen Delivery 08/03/24 03:05 08/03/24 03:15 08/03/24 03:31 Temperature Pulse Rate 116 H 116 H 121 H Respiratory Rate 21 H 31 H 32 H Blood Pressure 137/86 Pulse Oximetry 97 97 99 Oxygen Delivery 08/03/24 03:38 08/03/24 03:45 08/03/24 03:53 Temperature Pulse Rate 118 H 126 H 120 H Respiratory Rate 23 H 32 H 25 H Blood Pressure 155/97 H 140/109 H Pulse Oximetry 96 98 Oxygen Delivery 08/03/24 03:54 08/03/24 04:00 08/03/24 04:01 Temperature Pulse Rate 122 H 127 H 120 H Respiratory Rate 32 H 35 H 19 Blood Pressure Pulse Oximetry 99 Oxygen Delivery 08/03/24 04:12 08/03/24 04:15 08/03/24 04:30 Temperature Pulse Rate 118 H 120 H 119 H Respiratory Rate 25 H 34 H 20 Blood Pressure Pulse Oximetry 95 Oxygen Delivery 08/03/24 04:45 08/03/24 05:00 08/03/24 05:05 Temperature 98.0 F Pulse Rate 121 H 113 H 114 H Respiratory Rate 29 H 33 H 21 H Blood Pressure 135/98 H Pulse Oximetry 93 93 94 Oxygen Delivery 08/03/24 05:06 08/03/24 05:15 08/03/24 05:16 Temperature Pulse Rate 112 H 109 H 110 H Respiratory Rate 29 H 22 H 24 H Blood Pressure 127/99 H Pulse Oximetry 98 96 97 Oxygen Delivery 08/03/24 05:45 08/03/24 06:38 08/03/24 07:10 Temperature Pulse Rate 104 H 112 H 108 H Respiratory Rate 30 H 24 H 24 H Blood Pressure 131/108 H 128/81 Pulse Oximetry 99 95 96 Oxygen Delivery 08/03/24 08:41 08/03/24 11:11 Temperature 98.5 F Pulse Rate 107 H 110 H Respiratory Rate 28 H 20 Blood Pressure 126/94 H 140/104 H Pulse Oximetry 95 97 Oxygen Delivery H&P: Results Labs Labs: Short CBC 08/03/24 Range/Units 02:28 WBC 11.3 H (4.5-10.0) K/mm3 Hgb 15.0 (14.0-18.0) g/dL Hct 46.5 (42.0-52.0) % Plt Count 280 (150-375) k/mm3 BMP 08/03/24 02:28 Sodium 132 L Potassium 4.3 Chloride 96 L Carbon Dioxide 20 L BUN 26 H Creatinine 1.09 Glucose 107 Calcium 8.7 Cardiac Enzymes 08/03/24 08/03/24 08/03/24 Range/Units 02:28 06:53 09:48 Troponin I 0.071 H* 0.073 H* 0.069 H* (0.000-0.034) ng/mL Liver Function 08/03/24 Range/Units 02:28 Total Bilirubin 3.5 H (0.2-1.3) mg/dL AST 697 H (17-59) U/L ALT 352 H (6-50) U/L Alkaline Phosphatase 148 H (38-126) U/L Albumin 3.8 (3.5-5.1) g/dL Assessment and Plan Assessment and plan (1) Methamphetamine abuse: Code(s): F15.10 - Other stimulant abuse, uncomplicated Status: Acute (2) Alcohol abuse: Code(s): F10.10 - Alcohol abuse, uncomplicated Status: Acute (3) New onset of congestive heart failure: Code(s): I50.9 - Heart failure, unspecified Status: Acute (4) Elevated troponin: Code(s): R79.89 - Other specified abnormal findings of blood chemistry Status: Acute (5) Alcoholic hepatitis: Code(s): K70.10 - Alcoholic hepatitis without ascites Status: Acute (6) Elevated liver enzymes: Code(s): R74.8 - Abnormal levels of other serum enzymes Status: Acute Plan Alcohol Withdrawal CIWA score in ED Thiamine and folic acid Librium taper Gentle fluid resuscitate Lorazepam 2 mg q.4 hours p.r.n. for seizure Lorazepam 2 mg q.6 hours p.r.n. for CIWA score greater than 8 Consider Hydroxyzine 50 mg p.o. q.6 hours p.r.n. for anxiety Bentyl 20 mg p.o. q.6 hours p.r.n. for abdominal discomfort Methocarbamol 750 mg p.o. q.6 hours p.r.n. for muscle spasm Consider Catapres 0.1 mg p.o. q.2 hours p.r.n. for heart/cold sweats or anxiety. Hold if BP less than 90/60 Monitor development of withdrawal symptoms Monitor LFTs Order ultrasound abdomen Hypoglycemic med protocol CBC and CMP including Mag and phos Trend AST ALT Hepatitis panel pending Alcohol level 93 UDS results Chest Pain Trend troponin Echo pending Furosemide 20 mg IV q.d. Carvedilol 3.125 mg p.o. b.i.d. Losartan 2.5 mg p.o. q.d. Cardiology consult PNA Vital signs improved and stable RSV COVID flu pending Started on Zosyn Will deescalate antibiotic tomorrow monitor cultures MRSA pending encourage oral intake Chest/abdomen/pelvis CTA: Moderate to large right pleural effusion and moderate left pleural effusion. Patchy groundglass opacity and airspace consolidation. Lungs. Findings likely represent pulmonary edema. Correlate clinically for pneumonia. Severe hepatic steatosis. Questionable mild wall thickening sigmoid colon versus underdistention. Correlate for infectious/inflammatory colitis. Elevated lft Possibly due to alcohol GI consulted DVT prophylaxis Lovenox 40 mg subcutaneous daily Code status: Full code Hospitalist MIPS Advance Care Plan I have confirmed that the patient's Advanced Care Plan is present, code status is documented, or surrogate decision maker is listed in patient medical record.: Yes Medication Reconciliation I have utilized all available resources to obtain, update and review the patients current medications (includes all prescriptions, OTC, herbals, cannabis, and nutritional supplements).: Yes
--- NOTE | 2024-08-03 11:37 | CY_PTH ---
PATIENT: Gabe Castillo LOC: [facility] U#:[id number] AGE/SX: 39/M ROOM: 231 RE08/04/[address]: Pola Bar MD : [id number] BED: 01 DIS: 08/05/2024 SPEC #: [id number] RECD: 08/04/24 13:25 STATUS: KELLY REQ #: [id number] LAISHA: 08/03/24 11:[address]: Pola Bar DEPT: [facility] Cytology RECD BY: Yumiko Root ENTERED: 08/04/24 13:26 SP TYPE: Cytology OTHR DR: Blake Jara MD [employer] PH[employer]ICIAN MD Marcello Loredo MD Amardeep Shrestha, MD Tissues: A - Pleural Fluid Procedures: Hematoxylin and Eosin Stain Cell Block CD68 DAT-EP4 Calretinin Cytopathology Cytospin
[2024-08-03 12:10] LABS: Cholesterol 164 mg/dL (0-200); HDL Direct 27 mg/dL; Triglycerides 138 mg/dL (<150)
[2024-08-03 12:14] LABS: Hemoglobin A1C 5.4 % (<5.7)
[2024-08-03 12:20] LABS: LDL Cholesterol Direct 108 mg/dL
[2024-08-03 12:45] LABS: Syphilis IgG/IgM Antibody Non-Reactive (Nonreactive)
[2024-08-03] MEDS: methocarbamoL 500 MG TABLET PO ×2 (13:17→17:06)
[2024-08-03] MEDS: chlordiazePOXIDE (*CRX) 10 MG CAPSULE 20 MG PO ×2 (13:18→17:06)
--- NOTE | 2024-08-03 14:32 | P.CONGI_ITS ---
Assessment and Plan Assessment and plan (1) Alcoholic hepatitis: Code(s): K70.10 - Alcoholic hepatitis without ascites Status: Acute Assessment and Plan: heavy drinker monitor for DT's, on thiamine, nutrition support hepatitis panel negative he needs to stop drinking CT scan reviewed, hepatomegaly with pulmonary edema no indication for steroids now (2) Elevated liver enzymes: Code(s): R74.8 - Abnormal levels of other serum enzymes Status: Acute Assessment and Plan: from alcoholic hepatitis medical management (3) New onset of congestive heart failure: Code(s): I50.9 - Heart failure, unspecified Status: Acute Assessment and Plan: by packaging line attendant (4) Alcohol abuse: Code(s): F10.10 - Alcohol abuse, uncomplicated Status: Acute Assessment and Plan: [facility] protocol thiamine librium prn (5) Methamphetamine abuse: Code(s): F15.10 - Other stimulant abuse, uncomplicated Status: Acute (6) Elevated troponin: Code(s): R79.89 - Other specified abnormal findings of blood chemistry Status: Acute (7) Lactic acidosis: Code(s): E87.20 - Acidosis, unspecified Status: Acute (8) Pulmonary edema: Code(s): J81.1 - Chronic pulmonary edema Status: Acute (9) Pleural effusion: Code(s): J90 - Pleural effusion, not elsewhere classified Status: Acute Assessment and Plan: may need thoracentesis GI Consult Note Consult date/time: 08/03/24 14:32 Reason for consult: elevated liver enzymes, alcohol abuse, chf HPI: Gabe Castillo is a 39 year old male who uses methamphetamines 3 or 4 times per week, also 2 fifth of alcohol daily. He came to ER with progressive shortness of breath and leg swelling for several days. It seems that had upper respiratory tract infection about 3 weeks ago and shortly thereafter he started to feel poorly. No chest pain. Also generalized fatigue. ER workup evaluation in [facility] was over 12,000. CTA chest reviewed, Moderate to large right pleural effusion and moderate left pleural effusion. Patchy groundglass opacity and airspace consolidation likely represent pulmonary edema. Severe hepatic steatosis. Also had mild elevated troponins, selin 3.5, transaminases 300-600. Hepatitis panel negative. High lactic acid. INR 1.4 Review of Systems 2 Constitutional: Constitutional: Reports fatigue and Reports weakness Eyes: Eyes: Denies blurry vision ENT: Reports Normal hearing present Cardiovascular: Cardiovascular: Denies chest pain and Reports leg edema Respiratory: Respiratory: Denies hemoptysis and Reports dyspnea Gastrointestinal: Gastrointestinal: Denies abdominal pain and Reports bloating Genitourinary: Genitourinary: Denies hematuria Musculoskeletal: Musculoskeletal: Denies back pain Integumentary/Breasts: Skin/Breast: Denies dry skin Neurologic: Reports Abnormal speech present Psychiatric: Psychiatric: Reports anxiety [facility] Past Medical History Medical History (Updated 08/03/24 @ 14:39 by Darrel Braga MD) Pleural effusion Elevated liver enzymes GERD (gastroesophageal reflux disease) Alcohol abuse Methamphetamine abuse Family History Family History (Updated 08/03/24 @ 11:14 by Blake Jara MD) Mother COPD (chronic obstructive pulmonary disease) Social History Social History Smoking status: Current every day smoker Tobacco type: e-cigarettes/vaping Alcohol intake: current Substance use: current Substance use type: IV drugs and methamphetamine Spiritual care concerns: No Meds Home Medications and Allergies Home Medications ?Medication ?Instructions ?Recorded ?Confirmed ?Type No Home Medications 08/03/24 08/03/24 History Allergies Allergy/AdvReac Type Severity Reaction Status Date / Time No Known Allergies Allergy Unknown Verified 08/03/24 03:18 Vital Signs Vital Signs - 24 hr 08/03/24 02:21 08/03/24 02:24 08/03/24 02:24 Temperature 98.4 F Pulse Rate 118 H 122 H Respiratory Rate 20 Blood Pressure 144/115 H Pulse Oximetry 100 100 Oxygen Delivery Room Air Room Air 08/03/24 02:24 08/03/24 02:28 08/03/24 02:30 Temperature 98.4 F Pulse Rate 120 H 120 H 118 H Respiratory Rate 29 H 28 H 28 H Blood Pressure 144/115 H Pulse Oximetry 100 98 99 Oxygen Delivery 08/03/24 02:31 08/03/24 02:45 08/03/24 03:03 Temperature Pulse Rate 120 H 116 H 118 H Respiratory Rate 31 H 39 H 30 H Blood Pressure 142/109 H 137/86 Pulse Oximetry 100 100 Oxygen Delivery 08/03/24 03:05 08/03/24 03:15 08/03/24 03:31 Temperature Pulse Rate 116 H 116 H 121 H Respiratory Rate 21 H 31 H 32 H Blood Pressure 137/86 Pulse Oximetry 97 97 99 Oxygen Delivery 08/03/24 03:38 08/03/24 03:45 08/03/24 03:53 Temperature Pulse Rate 118 H 126 H 120 H Respiratory Rate 23 H 32 H 25 H Blood Pressure 155/97 H 140/109 H Pulse Oximetry 96 98 Oxygen Delivery 08/03/24 03:54 08/03/24 04:00 08/03/24 04:01 Temperature Pulse Rate 122 H 127 H 120 H Respiratory Rate 32 H 35 H 19 Blood Pressure Pulse Oximetry 99 Oxygen Delivery 08/03/24 04:12 08/03/24 04:15 08/03/24 04:30 Temperature Pulse Rate 118 H 120 H 119 H Respiratory Rate 25 H 34 H 20 Blood Pressure Pulse Oximetry 95 Oxygen Delivery 08/03/24 04:45 08/03/24 05:00 08/03/24 05:05 Temperature 98.0 F Pulse Rate 121 H 113 H 114 H Respiratory Rate 29 H 33 H 21 H Blood Pressure 135/98 H Pulse Oximetry 93 93 94 Oxygen Delivery 08/03/24 05:06 08/03/24 05:15 08/03/24 05:16 Temperature Pulse Rate 112 H 109 H 110 H Respiratory Rate 29 H 22 H 24 H Blood Pressure 127/99 H Pulse Oximetry 98 96 97 Oxygen Delivery 08/03/24 05:45 08/03/24 06:38 08/03/24 07:10 Temperature Pulse Rate 104 H 112 H 108 H Respiratory Rate 30 H 24 H 24 H Blood Pressure 131/108 H 128/81 Pulse Oximetry 99 95 96 Oxygen Delivery 08/03/24 08:41 08/03/24 11:11 08/03/24 11:55 Temperature 98.5 F 97.9 F Pulse Rate 107 H 110 H 117 H Respiratory Rate 28 H 20 18 Blood Pressure 126/94 H 140/104 H 135/101 H Pulse Oximetry 95 97 100 Oxygen Delivery Exam 2 Const: General: comfortable and no acute distress HENMT: Face/Nose/Sinus: Normal nares present Mouth: Yes moist mucous membranes Eyes: Sclera: sclerae normal Neck: Neck: supple Resp: Effort & Inspection: normal respiratory effort Auscultation: clear to auscultation bilaterally Cardio: Rate: regular rate Rhythm: regular rhythm Heart sounds: no murmurs GI: Inspection: non-distended GI Palp: Yes Soft to palpation and No Tenderness to palpation present (GI) Auscultation: normal bowel sounds Skin: General skin exam: normal color Neuro: Speech: normal speech Sensory Exam: normal sensation Extrem: General: edema Other: 1+ bilateral lower extremity edema Psych: Mental Status: mental status grossly abnormal Attitude: not belligerent Results Labs 08/03/24 02:28 08/03/24 02:28 Labs: Short CBC 08/03/24 Range/Units 02:28 WBC 11.3 H (4.5-10.0) K/mm3 Hgb 15.0 (14.0-18.0) g/dL Hct 46.5 (42.0-52.0) % Plt Count 280 (150-375) k/mm3 BMP 08/03/24 02:28 Sodium 132 L Potassium 4.3 Chloride 96 L Carbon Dioxide 20 L BUN 26 H Creatinine 1.09 Glucose 107 Calcium 8.7 Cardiac Enzymes 08/03/24 08/03/24 08/03/24 Range/Units 02:28 06:53 09:48 Troponin I 0.071 H* 0.073 H* 0.069 H* (0.000-0.034) ng/mL Liver Function 08/03/24 Range/Units 02:28 Total Bilirubin 3.5 H (0.2-1.3) mg/dL AST 697 H (17-59) U/L ALT 352 H (6-50) U/L Alkaline Phosphatase 148 H (38-126) U/L Albumin 3.8 (3.5-5.1) g/dL
[2024-08-03] MEDS: SODIUM CHLORIDE 0.9% IV 1,000 ML 100 ML IV CONT (17:06)
[2024-08-03] MEDS: VANCOMYCIN 1,500 MG/NS 500 ML 1,500 MG/500 ML BAG 250 MG IVPB (17:06)
[2024-08-03 17:30] LABS: Glucose Point of Care 87 mg/dl (65-105)
[2024-08-03 18:31] LABS: Influenza A QL RT-PCR Negative (Negative); Influenza B QL RT-PCR Negative (Negative); RSV RNA, RT-PCR Negative (Negative); SARS-CoV-2 RNA PCR Negative (Negative)
[2024-08-03 19:06] LABS: MRSA (PCR) NOT DETECTED (NOT DETECTE)
--- NOTE | 2024-08-03 20:33 | P.PNCROSS_ITS ---
Event Note Event Note Event Note: S: Nurse reports that the patient seems to be increasingly short of breath and restless. CIWA score is 12 after receiving lorazepam 2 mg IV. The patient tells me that he is anxious and feels as though he cannot take in a deep breath. He has tremors and visual hallucinations as well. He denies chest pain, pleuritic pain, abdominal pain, vomiting, syncope, and near syncope. O: Acutely ill-appearing male sitting up in bed. He is tachypneic with shallow respirations. He is able to speak in full sentences. SpO2 was in the upper 90s on room air. Lung sounds are diminished the bases with occasional crackles. He is tachycardic. Abdomen is nontender and nondistended with positive bowel sounds. No cyanosis, clubbing, or edema. He is alert and oriented. No tongue fasciculations or asterixis. Bedside ultrasound showed a few B lines and the left ventricle is dilated with decreased systolic function. A/P: * Alcohol withdrawal: The patient received phenobarbital 260 mg IV x1 in the ED early yesterday morning. He is on scheduled Librium and that dose will be increased. We will also increase his Ativan doses depending on his CIWA scores. * Shortness of breath: Likely due to a combination anxiety from alcohol withdrawal and pulmonary edema. Will given extra dose of furosemide this evening. Critical Care Time Critical Care Time: Yes Total Critical Care Time: 30 Attestation: Due to a high probability of clinically significant, life threatening deterioration, the patient required my highest level of preparedness to intervene emergently and I personally spent this critical care time directly and personally managing the patient. This critical care time included obtaining a history; examining the patient; pulse oximetry; ordering and review of studies; arranging urgent treatment with development of a management plan; evaluation of patient's response to treatment; frequent reassessment; and discussions with other providers. It was exclusive of separately billable procedures and treating other patients and teaching time. Please see Assessment and Plan section and the rest of the note for further information on patient assessment and treatment.
[2024-08-03] MEDS: carvediloL 3.125 MG TABLET PO (20:40)
[2024-08-03] MEDS: LORazepam INJ (*CRX) 2 MG/ML VIAL 1 MG IV PUSH (23:39)
[2024-08-03] MEDS: FUROSEMIDE INJ 40 MG/4 ML VIAL 20 MG IV PUSH (23:40)
[2024-08-04] VITALS (18 sets, daily range): BP systolic 105–139; BP diastolic 54–97; PULSE 93–122; RESP 16–118; TEMP 36.3–36.5; O2SAT 92–100
[2024-08-04] LABS: Glucose Point of Care 109 mg/dl (65-105)
[2024-08-04] MEDS: LORazepam INJ (*CRX) 2 MG/ML VIAL IV PUSH ×2 (00:51→21:08)
[2024-08-04 02:32] LABS: Lactic Acid Reflex 2.5 mmol/L (0.7-2.0)
[2024-08-04 02:33] LABS: Magnesium 2.1 mg/dL (1.6-2.3)
[2024-08-04 02:41] LABS: Hematocrit 44.3 % (42.0-52.0); Hemoglobin 14.4 g/dL (14.0-18.0); Mean Corpuscular HGB Conc 32.5 g/dl (32-36); Mean Corpuscular Hemoglobin 33.7 pg (26-34); Mean Corpuscular Volume 103.7 fl (80-100); Mean Platelet Volume 12.7 fl (7.4-10.4); Platelet Count Result 190 k/mm3 (150-375); Red Blood Count 4.27 M/mm3 (4.6-6.20); Red Cell Distribution Width 14.4 % (11.5-14.5); White Blood Count 7.6 K/mm3 (4.5-10.0)
[2024-08-04 02:42] LABS: NT Pro B Type Natriuretic Pept 14700 pg/mL (19.9-100)
[2024-08-04 02:45] LABS: Alanine Aminotransferase 268 U/L (6-50); Albumin Level 3.3 g/dL (3.5-5.1); Alkaline Phosphatase 128 U/L (38-126); Anion Gap 10 mmol/L (4-12); Aspartate Amino Transferase 472 U/L (17-59); Bilirubin,Total 3.2 mg/dL (0.2-1.3); Blood Urea Nitrogen 23 mg/dL (9-20); Calcium 8.1 mg/dL (8.4-10.2); Carbon Dioxide 24 mmol/L (22-30); Chloride 98 mmol/L (98-107); Estimated CRCL calculation 88 ml/min; Estimated Glomerular Filt Rate > 60; Glucose 102 mg/dL (65-110); Potassium 3.7 mmol/L (3.4-5.0); Sodium 132 mmol/L (137-145); Total Protein 5.8 g/dL (6.3-8.2)
[2024-08-04 04:21] LABS: Reflex Lactic Acid Yes or No Add Lactic
[2024-08-04 05:04] LABS: Lactic Acid 1.5 mmol/L (0.7-2.0)
[2024-08-04] MEDS: VANCOMYCIN 1,500 MG/NS 500 ML 1,500 MG/500 ML BAG 250 MG IVPB (05:12)
--- NOTE | 2024-08-04 06:00 | ECHO_ITS ---
Patient Info Name: Gabe Castillo Age: 39 years : 1985 Gender: Male Ht: 66 in Wt: 173 lbs BSA: 1.93 m2 HR: 107 bpm BP: 116 / 88 mmHg Heart Rhythm: Sinus Rhythm Technical Quality: Good Exam Date: 08/04/2024 3:11 PM Patient Status: I Admit Date: 08/04/2024 Exam Type: CA echo dop color flow w con Complete two-dimensional, color flow and Doppler transthoracic echocardiogram is performed with contrast to opacify the left ventricle and to improve the deliniation of the left ventricle endocardial borders. Staff Referring Physician: Pola Bar Electric Golf Cart Repairer: Jennifer Navarro Attending Provider: Sergio Sterling Contrast/Agitated Saline Contrast/Ag. Saline: Definity Amount: 2.00 ml Administered By: Jennifer Navarro Existing IV Access: Yes IV Access Condition: patent with no signs of infiltration Summary 1. Left ventricular chamber dimension is moderately enlarged. 2. Left ventricular systolic function is severely reduced, estimated at 25-30. 3. The left ventricular diastolic function is grade I diastolic dysfunction. 4. Right ventricular systolic function is normal. 5. Left atrial chamber dimension is mildly enlarged. 6. Right atrial chamber dimension is mildly enlarged. 7. There is moderate mitral valve regurgitation. 8. There is mild to moderate tricuspid valve regurgitation. Left Ventricle Left ventricular chamber dimension is moderately enlarged. Left ventricular systolic function is severely reduced, estimated at 25-30. There is no increased left ventricular wall thickness. The left ventricular diastolic function is grade I diastolic dysfunction. Right Ventricle Right ventricular chamber dimension is normal. Right ventricular systolic function is normal. Left Atria Left atrial chamber dimension is mildly enlarged. Right Atria Right atrial chamber dimension is mildly enlarged. Atrial Septum Intact interatrial septum visualized by color flow imaging. Aortic Valve The aortic valve is trileaflet. There is no aortic valve stenosis. There is no aortic valve regurgitation. Pulmonic Valve The pulmonic valve is not well visualized. There is trace pulmonic regurgitation. Mitral Valve There is moderate mitral valve regurgitation. Tricuspid Valve There is mild to moderate tricuspid valve regurgitation. Pericardium/Pleural There is no pericardial effusion. Inferior Vena Cava Normal inferior vena cava with >50% collapse upon inspiration consistent with normal right atrial pressure, 3 mmHg. Aorta The aortic root size at the sinus of Valsalva is normal. Left Ventricular Outflow Tract Name Value Normal LVOT 2D LVOT Diameter 2.3 cm LVOT Doppler LVOT Peak Velocity 107 cm/s LVOT Peak Gradient 5 mmHg LVOT Mean Gradient 3 mmHg LVOT VTI 17 cm LVOT VTI/AV VTI Ratio 1.0 LVOT Stroke Volume 73 ml LVOT CO 6.6 l/min LVOT CI 3.4 l/min/m2 Pulmonic Valve Name Value Normal PV Doppler PV Peak Velocity 61 cm/s PV Peak Gradient 1 mmHg PV Regurgitation Doppler NC Peak End Diastolic Velocity 155 cm/s Mitral Valve Name Value Normal MV Doppler MV Peak Gradient 4 mmHg MV Mean Gradient 1 mmHg MV Area (Cont Eq VTI) 5.3 cm2 MV Regurgitation Doppler MR Peak Gradient 73 mmHg MV Diastolic Function MV E Peak Velocity 104 cm/s MV A Peak Velocity 56 cm/s MV E/A 1.9 MV Decel Time (PW) 100 ms MV Annular TDI MV E/e' (Septal) 13.4 MV E/e' (Lateral) 10.7 MV E/e' (Average) 12.0 Tricuspid Valve Name Value Normal TV Regurgitation Doppler TR Peak Velocity 300 cm/s TR Peak Gradient 36 mmHg Estimated PAP/RSVP RA Pressure 3 mmHg <=5 PA Systolic Pressure 39 mmHg <36 RV Systolic Pressure 39 mmHg <36 TV Annular TDI TV Lateral Eli s' Velocity 10.6 cm/s >=9.5 Aortic Valve Name Value Normal AV Doppler AV Peak Velocity 96 cm/s AV Peak Gradient 4 mmHg AV Mean Gradient 2 mmHg AV VTI 16 cm AV Area (Cont Eq VTI) 4.4 cm2 >=3.0 AV Area (Cont Eq Jagdish) 4.8 cm2 AV DI (Jagdish) 1.12 AV Regurgitation 2D LVOT Area 4.3 cm2 Ventricles Name Value Normal LV Dimensions 2D/MM LVOT Diameter 2.3 cm LV Fractional Shortening/Ejection Fraction 2D/MM LV Diastolic Volume (4C MOD) 205 ml LV EF (4C MOD) 24 % LV Diastolic Volume (2C MOD) 230 ml LV EF (2C MOD) 27 % LV Diastolic Volume (BP MOD) 227 ml 62-150 LV Diastolic Volume Index (BP MOD) 118 ml/m2 34-74 LV Systolic Volume (BP MOD) 166 ml 21-61 LV Systolic Volume Index (BP MOD) 86 ml/m2 11-31 LV EF (BP MOD) 27 % 52-72 LV Diastolic Length (4C) 9.0 cm LV Systolic Length (4C) 8.5 cm LV Stroke Volume (4C MOD) 49 ml Atria Name Value Normal LA Dimensions LA Volume (4C A-L) 62 ml LA Volume (BP A-L) 68 ml RA Dimensions RA Systolic Major [place] Length (4C) 5.1 cm 2.1-2.7 RA Area (4C) 21.1 cm2 <=18.0 Report Signatures
[2024-08-04] MEDS: chlordiazePOXIDE (*CRX) 25 MG CAPSULE PO ×4 (06:08→23:19)
[2024-08-04 06:44] LABS: Glucose Point of Care 91 mg/dl (65-105)
[2024-08-04] MEDS: LORazepam INJ (*CRX) 2 MG/ML VIAL 1 MG IV PUSH (08:45)
[2024-08-04] MEDS: LOSARTAN POTASSIUM 12.5 MG TABLET PO (08:45)
[2024-08-04] MEDS: FUROSEMIDE INJ 40 MG/4 ML VIAL 20 MG IV PUSH (08:45)
[2024-08-04] MEDS: carvediloL 3.125 MG TABLET PO ×2 (08:45→21:08)
[2024-08-04 09:17] LABS: INR 1.3
[2024-08-04 09:18] LABS: Partial Thromboplastin Time 26.8 Seconds (22.3-36.8)
--- NOTE | 2024-08-04 10:17 | PC.NURSE ---
Pt to US for thoracentesis via stretcher
--- NOTE | 2024-08-04 10:28 | PM.IMPN ---
Progress Note: A&P Assessment and Plan (1) Methamphetamine abuse: Code(s): F15.10 - Other stimulant abuse, uncomplicated Status: Acute (2) Alcohol abuse: Code(s): F10.10 - Alcohol abuse, uncomplicated Status: Acute (3) New onset of congestive heart failure: Code(s): I50.9 - Heart failure, unspecified Status: Acute (4) Elevated troponin: Code(s): R79.89 - Other specified abnormal findings of blood chemistry Status: Acute (5) Alcoholic hepatitis: Code(s): K70.10 - Alcoholic hepatitis without ascites Status: Acute (6) Elevated liver enzymes: Code(s): R74.8 - Abnormal levels of other serum enzymes Status: Acute Plan Alcohol Withdrawal CIWA score in ED Thiamine and folic acid Librium taper Gentle fluid resuscitate Lorazepam 2 mg q.4 hours p.r.n. for seizure Lorazepam 2 mg q.6 hours p.r.n. for CIWA score greater than 8 Consider Hydroxyzine 50 mg p.o. q.6 hours p.r.n. for anxiety Bentyl 20 mg p.o. q.6 hours p.r.n. for abdominal discomfort Methocarbamol 750 mg p.o. q.6 hours p.r.n. for muscle spasm Consider Catapres 0.1 mg p.o. q.2 hours p.r.n. for heart/cold sweats or anxiety. Hold if BP less than 90/60 Monitor development of withdrawal symptoms Monitor LFTs Order ultrasound abdomen Hypoglycemic med protocol CBC and CMP including Mag and phos Trend AST ALT Hepatitis panel pending Alcohol level 93 UDS results Chest Pain Trend troponin Echo pending Furosemide increased 20 to 40 mg IV q.d. Carvedilol 3.125 mg p.o. b.i.d. Losartan 2.5 mg p.o. q.d. Cardiology consult PNA/pleural effusion Underwent thoracentesis and removed 1 L from right pleural space. Vital signs improved and stable RSV COVID flu pending Discontinue Zosyn Started on levofloxacin monitor cultures MRSA pending encourage oral intake Chest/abdomen/pelvis CTA: Moderate to large right pleural effusion and moderate left pleural effusion. Patchy groundglass opacity and airspace consolidation. Lungs. Findings likely represent pulmonary edema. Correlate clinically for pneumonia. Severe hepatic steatosis. Questionable mild wall thickening sigmoid colon versus underdistention. Correlate for infectious/inflammatory colitis. Elevated lft Possibly due to alcohol GI consulted DVT prophylaxis Lovenox 40 mg subcutaneous daily Code status: Full code Subjective Date/time seen: 08/04/24 10:28 Interval history: Patient Librium dosage has been increased due to agitation. Will taper down librium dosage by tomorrow due to his hepatic impairment. Patient denies any hallucinations or tactile stimulation. Pending echocardiogram. Increased Lasix from 20 mg to 40 mg IV q.d.. Patient is started on levofloxacin. Review of Systems Review of Systems: All systems reviewed & are unremarkable except as noted in HPI and below Constitutional: Constitutional: Denies excessive sweating, Reports fatigue and Reports weakness Eyes: Eyes: Denies blurry vision ENT: Reports Normal hearing present Cardiovascular: Cardiovascular: Denies chest pain, Reports leg edema and Reports dyspnea Respiratory: Respiratory: Denies hemoptysis and Reports dyspnea Gastrointestinal: Gastrointestinal: Denies abdominal pain and Reports bloating Genitourinary: Genitourinary: Denies hematuria Musculoskeletal: Musculoskeletal: Denies back pain Integumentary/Breasts: Skin/Breast: Denies dry skin Neurologic: Reports Normal hearing present, Reports Abnormal speech present and Reports weakness Psychiatric: Psychiatric: Reports anxiety Endocrine: Endocrine: Denies excessive sweating and Reports fatigue Hematologic/Lymphatic: Hematologic/Lymphatic: Denies easy bleeding Allergic/Immunologic: Allergic/Immunologic: Denies GI upset with certain foods Exam Narrative: He is confused but does awaken and answers a few questions but goes back to sleep. Appears stated age Const: General: comfortable and no acute distress HENMT: Face/Nose/Sinus: Normal nares present Mouth: Yes moist mucous membranes Eyes: Sclera: sclerae normal Neck: Neck: supple and no JVD Chest: Other: No reproducible chest wall pain to palpation Resp: Effort & Inspection: normal respiratory effort Auscultation: clear to auscultation bilaterally Cardio: Rate: regular rate Rhythm: regular rhythm Heart sounds: no murmurs GI: Inspection: non-distended Auscultation: normal bowel sounds Skin: General skin exam: normal color Neuro: Cranial nerves: Yes Normal hearing present Speech: normal speech and Abnormal speech present Sensory Exam: normal sensation Extrem: General: edema Other: 1+ bilateral lower extremity edema Psych: Mental Status: mental status grossly abnormal Attitude: not belligerent Objective Data Vital Signs Vital Signs: Vital Signs - 24 hr 08/03/24 11:11 08/03/24 11:55 08/03/24 12:00 Temperature 97.9 F Pulse Rate 110 H 117 H Respiratory Rate 20 18 Blood Pressure 140/104 H 135/101 H Pulse Oximetry 97 100 93 Oxygen Delivery Room Air 08/03/24 12:00 08/03/24 14:00 08/03/24 15:45 Temperature 98.5 F Pulse Rate 111 H 119 H 114 H Respiratory Rate 28 H Blood Pressure 122/89 Pulse Oximetry 93 Oxygen Delivery 08/03/24 16:00 08/03/24 16:00 08/03/24 16:57 Temperature Pulse Rate 111 H 113 H Respiratory Rate 28 H Blood Pressure 130/99 H Pulse Oximetry 93 93 Oxygen Delivery Room Air 08/03/24 18:00 08/03/24 19:15 08/03/24 19:53 Temperature Pulse Rate 117 H 116 H Respiratory Rate 26 H Blood Pressure 116/95 H Pulse Oximetry 92 Oxygen Delivery Room Air 08/03/24 20:00 08/03/24 20:00 08/03/24 20:40 Temperature 97.5 F L Pulse Rate 118 H 120 H Respiratory Rate Blood Pressure Pulse Oximetry Oxygen Delivery 08/03/24 22:00 08/04/24 00:00 08/04/24 00:00 Temperature 97.6 F Pulse Rate 112 H 117 H 122 H Respiratory Rate 28 H Blood Pressure 128/97 H Pulse Oximetry 95 Oxygen Delivery 08/04/24 00:00 08/04/24 02:00 08/04/24 04:00 Temperature Pulse Rate 104 H Respiratory Rate Blood Pressure Pulse Oximetry Oxygen Delivery Room Air Room Air 08/04/24 04:00 08/04/24 04:00 08/04/24 06:00 Temperature 97.5 F L Pulse Rate 99 105 H 107 H Respiratory Rate 20 Blood Pressure 116/88 Pulse Oximetry 96 Oxygen Delivery 08/04/24 08:00 08/04/24 08:00 08/04/24 08:45 Temperature Pulse Rate 100 101 H 101 H Respiratory Rate 34 H 34 H Blood Pressure 129/84 Pulse Oximetry 94 94 Oxygen Delivery Room Air Intake/Output Intake/Output: Intake & Output 08/01/24 08/02/24 08/03/24 08/04/24 23:59 23:59 23:59 23:59 Intake Total 1530 650 Output Total 1050 Balance 1530 -400 Meds/Results Medications: Active Medications Generic Name Dose Route Start Last Admin Trade Name Freq PRN Reason Stop Dose Admin Carvedilol 3.125 mg 08/03/24 21:00 08/04/24 08:45 Carvedilol 3.125 Mg Tablet PO 3.125 mg Q12HR EMILE Administration Chlordiazepoxide HCl 20 mg 08/03/24 13:00 08/03/24 17:06 Chlordiazepoxide (*Crx) 10 Mg Capsule PO 20 mg QID EMILE Administration Chlordiazepoxide HCl 15 mg 08/04/24 13:00 Chlordiazepoxide (*Crx) 5 Mg Capsule PO 08/07/24 12:59 QID EMILE Taper Chlordiazepoxide HCl 25 mg 08/03/24 20:35 08/04/24 06:08 Chlordiazepoxide (*Crx) 25 Mg Capsule PO 25 mg Q6HR EMILE Administration Dextrose 12.5 gm 08/03/24 15:42 Dextrose 50% 25 Gm/50 Ml Syringe IV PUSH PRN PRN Hypoglycemia Protocol Dicyclomine HCl 20 mg 08/03/24 11:34 Dicyclomine Hcl 10 Mg Capsule PO QID PRN Abdominal Cramping Enoxaparin Sodium 40 mg 08/04/24 09:00 Enoxaparin 40 Mg/0.4 Ml Syringe SUB-Q DAILY [facility] Folic Acid 1 mg 08/04/24 09:00 Folic Acid 1 Mg Tablet PO DAILY [facility] Furosemide 40 mg 08/05/24 09:00 Furosemide Inj 40 Mg/4 Ml Vial IV PUSH DAILY [facility] Glucagon 1 mg 08/03/24 15:42 Glucagon For Inj 1 Mg Vial IM PRN PRN Hypoglycemia Protocol Glucose 15 gm 08/03/24 15:42 Glucose Oral Gel 15 Gm Of Glucse In 37.5 Gm Tube PO PRN PRN Hypoglycemia Protocol Vancomycin HCl 1,500 mg in 500 mls @ 250 mls/hr 08/03/24 17:00 08/04/24 05:12 Vancomycin 1,500 Mg/Ns 500 Ml IVPB 250 mls/hr Q12H EMILE Administration Dextrose 1,000 mls @ 100 mls/hr 08/03/24 15:42 Dextrose 5% 1,000 Ml IVPB PRN PRN Hypoglycemia Protocol Lorazepam 2 mg 08/03/24 23:17 Lorazepam Inj (*Crx) 2 Mg/Ml Vial IV PUSH Q2H PRN CIWA > 15 Lorazepam 1 mg 08/03/24 23:17 08/04/24 08:45 Lorazepam Inj (*Crx) 2 Mg/Ml Vial IV PUSH 1 mg Q2H PRN Administration CIWA 8-15 Losartan Potassium 12.5 mg 08/04/24 09:00 08/04/24 08:45 Losartan Potassium 12.5 Mg Tablet PO 12.5 mg DAILY EMILE Administration Methocarbamol 500 mg 08/03/24 20:33 Methocarbamol 500 Mg Tablet PO QID PRN Muscle Spasm Naloxone HCl 0.1 mg 08/03/24 15:23 Naloxone Hcl 0.4 Mg/Ml Vial IV PUSH Q5MIN PRN Opiate Reversal Perflutren Lipid Microsphere 0 ml 08/03/24 06:43 Perflutren Lipid Microspheres 1.5 Ml Vial Diluted To 10 Ml Total Volume IV PUSH 08/06/24 06:45 ONCE PRN adequate visualization Protocol Thiamine HCl 100 mg 08/04/24 09:00 Thiamine Hcl 100 Mg Tablet PO QAM [facility] Radiology Results: ITS Impressions Chest/Abdomen/Pelvis CTA 08/03/24 06:31 Impression: Moderate to large right pleural effusion and moderate left pleural effusion. Patchy groundglass opacity and airspace consolidation. Lungs. Findings likely represent pulmonary edema. Correlate clinically for pneumonia. Severe hepatic steatosis. Questionable mild wall thickening sigmoid colon versus underdistention. Correlate for infectious/inflammatory colitis. Chest X-Ray 08/04/24 05:38 Impression: Mild to moderate central pulmonary edema pattern. Labs Labs: Laboratory Results - last 24 hr 08/03/24 08/03/24 08/03/24 02:28 02:42 06:53 WBC RBC Hgb Hct MCV MCH MCHC RDW Plt Count MPV PT INR APTT Sodium Potassium Chloride Carbon Dioxide Anion Gap BUN Creatinine Estim Creat Clear Calc Estimated GFR Glucose POC Capillary Glucose Hemoglobin A1c 5.4 Lactic Acid Calcium Magnesium Total Bilirubin AST ALT Alkaline Phosphatase NT-Pro-B Natriuret Pep Total Protein Albumin Triglycerides 138 Cholesterol 164 LDL Cholesterol Direct 108 HDL Direct 27 Nasal MRSA (PCR) Syphilis IgG/IgM Ab Non-reactive Influenza A (RT-PCR) Influenza B (RT-PCR) RSV (RT-PCR) SARS-CoV-2 RNA (RT-PCR) 08/03/24 08/03/2425 17:26 17:40 23:58 WBC RBC Hgb Hct MCV MCH MCHC RDW Plt Count MPV PT INR APTT Sodium Potassium Chloride Carbon Dioxide Anion Gap BUN Creatinine Estim Creat Clear Calc Estimated GFR Glucose POC Capillary Glucose 87 109 H Hemoglobin A1c Lactic Acid Calcium Magnesium Total Bilirubin AST ALT Alkaline Phosphatase NT-Pro-B Natriuret Pep Total Protein Albumin Triglycerides Cholesterol LDL Cholesterol Direct HDL Direct Nasal MRSA (PCR) Not detected Syphilis IgG/IgM Ab Influenza A (RT-PCR) Negative Influenza B (RT-PCR) Negative RSV (RT-PCR) Negative SARS-CoV-2 RNA (RT-PCR) Negative 08/04/24 08/04/24 08/04/24 01:53 04:41 06:42 WBC 7.6 RBC 4.27 L Hgb 14.4 Hct 44.3 MCV 103.7 H MCH 33.7 MCHC 32.5 RDW 14.4 Plt Count 190 MPV 12.7 H PT INR APTT Sodium 132 L Potassium 3.7 Chloride 98 Carbon Dioxide 24 Anion Gap 10 BUN 23 H Creatinine 0.88 Estim Creat Clear Calc 88 Estimated GFR > 60 Glucose 102 POC Capillary Glucose 91 Hemoglobin A1c Lactic Acid 2.5 H 1.5 Calcium 8.1 L Magnesium 2.1 Total Bilirubin 3.2 H AST 472 H ALT 268 H Alkaline Phosphatase 128 H NT-Pro-B Natriuret Pep 54375 H Total Protein 5.8 L Albumin 3.3 L Triglycerides Cholesterol LDL Cholesterol Direct HDL Direct Nasal MRSA (PCR) Syphilis IgG/IgM Ab Influenza A (RT-PCR) Influenza B (RT-PCR) RSV (RT-PCR) SARS-CoV-2 RNA (RT-PCR) 08/04/24 08:38 WBC RBC Hgb Hct MCV MCH MCHC RDW Plt Count MPV PT 16.0 H INR 1.3 APTT 26.8 Sodium Potassium Chloride Carbon Dioxide Anion Gap BUN Creatinine Estim Creat Clear Calc Estimated GFR Glucose POC Capillary Glucose Hemoglobin A1c Lactic Acid Calcium Magnesium Total Bilirubin AST ALT Alkaline Phosphatase NT-Pro-B Natriuret Pep Total Protein Albumin Triglycerides Cholesterol LDL Cholesterol Direct HDL Direct Nasal MRSA (PCR) Syphilis IgG/IgM Ab Influenza A (RT-PCR) Influenza B (RT-PCR) RSV (RT-PCR) SARS-CoV-2 RNA (RT-PCR) Hospitalist [facility] Advance Care Plan I have confirmed that the patient's Advanced Care Plan is present, code status is documented, or surrogate decision maker is listed in patient medical record.: Yes Medication Reconciliation I have utilized all available resources to obtain, update and review the patients current medications (includes all prescriptions, OTC, herbals, cannabis, and nutritional supplements).: Yes
--- NOTE | 2024-08-04 11:09 | PC.NURSE ---
Pt returned from US via stretcher. No issues noted
--- NOTE | 2024-08-04 11:37 | PM.PNCARD ---
Progress Note: A&P Assessment and Plan (1) New onset of congestive heart failure: Code(s): I50.9 - Heart failure, unspecified Status: Acute Assessment and Plan: Patient likely has acute systolic congestive heart failure. 2D echocardiogram with Doppler [place] [address] and has some pulmonary vascular congestion by chest x-ray. He has cardiomegaly. Etiology of his CHF includes and most likely related to alcohol use plus/minus methamphetamine use plus/minus recent viral infection. Continue Furosemide 20 mg IV daily Continue carvedilol 3.125 mg p.o. twice daily. Continue losartan as well 12.5 mg p.o. daily. Can add spironolactone today. Jardiance/Farxiga depending on how he tolerates the above and affordability. He is suggesting that he may leave AMA stating that he is not going to stay in the hospital because he needs to get back to work. I advised against this. (2) Alcohol abuse: Code(s): F10.10 - Alcohol abuse, uncomplicated Status: Acute Assessment and Plan: Severe alcohol abuse. Counseling was performed. Alcohol withdrawal precautions (3) Methamphetamine abuse: Code(s): F15.10 - Other stimulant abuse, uncomplicated Status: Acute Assessment and Plan: Several times per week use (4) Alcoholic hepatitis: Code(s): K70.10 - Alcoholic hepatitis without ascites Status: Acute Assessment and Plan: Significant alcohol use. Alcohol withdrawal precautions as well as thiamine and folic acid replacement should prescribed but will defer this to the hospitalist (5) Elevated troponin: Code(s): R79.89 - Other specified abnormal findings of blood chemistry Status: Acute Assessment and Plan: Troponins are likely secondary to heart failure and not from acute plaque rupture. (6) Lactic acidosis: Code(s): E87.20 - Acidosis, unspecified Status: Acute Assessment and Plan: Improving. 1.6 today. Subjective Date/time seen: 08/04/24 11:37 Interval history: Cardiology follow up visit He is feeling better today. Denies shortness of breath, orthopnea. Swelling has improved significantly. Review of Systems Review of Systems: All systems reviewed & are unremarkable except as noted in HPI and below Constitutional: Constitutional: Denies excessive sweating, Reports fatigue and Reports weakness Eyes: Eyes: Denies blurry vision ENT: Reports Normal hearing present Cardiovascular: Cardiovascular: Denies chest pain, Reports leg edema and Reports dyspnea Respiratory: Respiratory: Denies hemoptysis and Reports dyspnea Gastrointestinal: Gastrointestinal: Denies abdominal pain and Reports bloating Genitourinary: Genitourinary: Denies hematuria Musculoskeletal: Musculoskeletal: Denies back pain Integumentary/Breasts: Skin/Breast: Denies dry skin Neurologic: Reports Normal hearing present, Reports Abnormal speech present and Reports weakness Psychiatric: Psychiatric: Denies anxiety Endocrine: Endocrine: Denies excessive sweating and Reports fatigue Hematologic/Lymphatic: Hematologic/Lymphatic: Denies easy bleeding Allergic/Immunologic: Allergic/Immunologic: Denies GI upset with certain foods Exam Narrative: He is confused but does answer questions. Appears stated age Const: General: comfortable and no acute distress HENMT: Face/Nose/Sinus: Normal nares present Mouth: Yes moist mucous membranes Eyes: Sclera: sclerae normal Neck: Neck: supple and no JVD Chest: Other: No reproducible chest wall pain to palpation Resp: Effort & Inspection: normal respiratory effort Auscultation: clear to auscultation bilaterally Cardio: Rate: regular rate Rhythm: regular rhythm Heart sounds: no murmurs GI: Inspection: non-distended Skin: General skin exam: normal color Neuro: Cranial nerves: Yes Normal hearing present Speech: normal speech and Abnormal speech present Sensory Exam: normal sensation Extrem: General: edema Other: 1+ bilateral lower extremity edema Psych: Mental Status: mental status grossly abnormal Attitude: not belligerent Objective Data Vital Signs Vital Signs: Vital Signs - 24 hr 08/03/24 11:55 08/03/24 12:00 08/03/24 12:00 Temperature 36.6 C Pulse Rate 117 H 111 H Respiratory Rate 18 Blood Pressure 135/101 H Pulse Oximetry 100 93 Oxygen Delivery Room Air 08/03/24 14:00 08/03/24 15:45 08/03/24 16:00 Temperature 36.9 C Pulse Rate 119 H 114 H Respiratory Rate 28 H Blood Pressure 122/89 Pulse Oximetry 93 93 Oxygen Delivery Room Air 08/03/24 16:00 08/03/24 16:57 08/03/24 18:00 Temperature Pulse Rate 111 H 113 H 117 H Respiratory Rate 28 H Blood Pressure 130/99 H Pulse Oximetry 93 Oxygen Delivery 08/03/24 19:15 08/03/24 19:53 08/03/24 20:00 Temperature 36.4 C L Pulse Rate 116 H Respiratory Rate 26 H Blood Pressure 116/95 H Pulse Oximetry 92 Oxygen Delivery Room Air 08/03/24 20:00 08/03/24 20:40 08/03/24 22:00 Temperature Pulse Rate 118 H 120 H 112 H Respiratory Rate Blood Pressure Pulse Oximetry Oxygen Delivery 08/04/24 00:00 08/04/24 00:00 08/04/24 00:00 Temperature 36.4 C Pulse Rate 117 H 122 H Respiratory Rate 28 H Blood Pressure 128/97 H Pulse Oximetry 95 Oxygen Delivery Room Air 08/04/24 02:00 08/04/24 04:00 08/04/24 04:00 Temperature Pulse Rate 104 H 99 Respiratory Rate Blood Pressure Pulse Oximetry Oxygen Delivery Room Air 08/04/24 04:00 08/04/24 06:00 08/04/24 08:00 Temperature 36.4 C L Pulse Rate 105 H 107 H 100 Respiratory Rate 20 34 H Blood Pressure 116/88 129/84 Pulse Oximetry 96 94 Oxygen Delivery 08/04/24 08:00 08/04/24 08:00 08/04/24 08:45 Temperature Pulse Rate 101 H 104 H 101 H Respiratory Rate 34 H Blood Pressure Pulse Oximetry 94 Oxygen Delivery Room Air 08/04/24 10:00 Temperature Pulse Rate 105 H Respiratory Rate Blood Pressure Pulse Oximetry Oxygen Delivery Intake/Output Intake/Output: Intake & Output 08/01/24 08/02/24 08/03/24 08/04/24 23:59 23:59 23:59 23:59 Intake Total 1530 650 Output Total 2450 Balance 1530 -1800 Meds/Results Medications: Active Medications Generic Name Dose Route Start Last Admin Trade Name Freq PRN Reason Stop Dose Admin Carvedilol 3.125 mg 08/03/24 21:00 08/04/24 08:45 Carvedilol 3.125 Mg Tablet PO 3.125 mg Q12HR EMILE Administration Chlordiazepoxide HCl 25 mg 08/03/24 20:35 08/04/24 06:08 Chlordiazepoxide (*Crx) 25 Mg Capsule PO 25 mg Q6HR EMILE Administration Dextrose 12.5 gm 08/03/24 15:42 Dextrose 50% 25 Gm/50 Ml Syringe IV PUSH PRN PRN Hypoglycemia Protocol Dicyclomine HCl 20 mg 08/03/24 11:34 Dicyclomine Hcl 10 Mg Capsule PO QID PRN Abdominal Cramping Enoxaparin Sodium 40 mg 08/04/24 09:00 Enoxaparin 40 Mg/0.4 Ml Syringe SUB-Q DAILY [facility] Folic Acid 1 mg 08/04/24 09:00 Folic Acid 1 Mg Tablet PO DAILY [facility] Furosemide 40 mg 08/05/24 09:00 Furosemide Inj 40 Mg/4 Ml Vial IV PUSH DAILY [facility] Glucagon 1 mg 08/03/24 15:42 Glucagon For Inj 1 Mg Vial IM PRN PRN Hypoglycemia Protocol Glucose 15 gm 08/03/24 15:42 Glucose Oral Gel 15 Gm Of Glucse In 37.5 Gm Tube PO PRN PRN Hypoglycemia Protocol Dextrose 1,000 mls @ 100 mls/hr 08/03/24 15:42 Dextrose 5% 1,000 Ml IVPB PRN PRN Hypoglycemia Protocol Lorazepam 2 mg 08/03/24 23:17 Lorazepam Inj (*Crx) 2 Mg/Ml Vial IV PUSH Q2H PRN CIWA > 15 Lorazepam 1 mg 08/03/24 23:17 08/04/24 08:45 Lorazepam Inj (*Crx) 2 Mg/Ml Vial IV PUSH 1 mg Q2H PRN Administration CIWA 8-15 Losartan Potassium 12.5 mg 08/04/24 09:00 08/04/24 08:45 Losartan Potassium 12.5 Mg Tablet PO 12.5 mg DAILY [facility] Administration Methocarbamol 500 mg 08/03/24 20:33 Methocarbamol 500 Mg Tablet PO QID PRN Muscle Spasm Naloxone HCl 0.1 mg 08/03/24 15:23 Naloxone Hcl 0.4 Mg/Ml Vial IV PUSH Q5MIN PRN Opiate Reversal Perflutren Lipid Microsphere 0 ml 08/03/24 06:43 Perflutren Lipid Microspheres 1.5 Ml Vial Diluted To 10 Ml Total Volume IV PUSH 08/06/24 06:45 ONCE PRN adequate visualization Protocol Thiamine HCl 100 mg 08/04/24 09:00 Th[facility]amine Hcl 100 [facility] [facility] Results: ITS Impressions Chest/Abdomen/Pelvis CTA 08/03/24 06:31 Impression: Moderate to large right pleural effusion and moderate left pleural effusion. Patchy groundglass opacity and airspace consolidation. Lungs. Findings likely represent pulmonary edema. Correlate clinically for pneumonia. Severe hepatic steatosis. Questionable mild wall thickening sigmoid colon versus underdistention. Correlate for infectious/inflammatory colitis. Chest X-Ray 08/04/24 11:18 IMPRESSION: No acute cardiopulmonary pathology. Thoracentesis Ultrasound 08/04/24 11:24 IMPRESSION: 1. Successful ultrasound-guided thoracentesis yielding 1100 mL of clear yellow fluid. Labs Labs: Laboratory Results - last 24 hr 08/03/24 08/03/24 08/03/24 02:28 02:42 06:53 WBC RBC Hgb Hct MCV MCH MCHC RDW Plt Count MPV PT INR APTT Sodium Potassium Chloride Carbon Dioxide Anion Gap BUN Creatinine Estim Creat Clear Calc Estimated GFR Glucose POC Capillary Glucose Hemoglobin A1c 5.4 Lactic Acid Calcium Magnesium Total Bilirubin AST ALT Alkaline Phosphatase NT-Pro-B Natriuret Pep Total Protein Albumin Triglycerides 138 Cholesterol 164 LDL Cholesterol Direct 108 HDL Direct 27 Nasal MRSA (PCR) Syphilis IgG/IgM Ab Non-reactive Influenza A (RT-PCR) Influenza B (RT-PCR) RSV (RT-PCR) SARS-CoV-2 RNA (RT-PCR) 08/03/24 08/03/24 08/03/24 17:26 17:40 23:58 WBC RBC Hgb Hct MCV MCH MCHC RDW Plt Count MPV PT INR APTT Sodium Potassium Chloride Carbon Dioxide Anion Gap BUN Creatinine Estim Creat Clear Calc Estimated GFR Glucose POC Capillary Glucose 87 109 H Hemoglobin A1c Lactic Acid Calcium Magnesium Total Bilirubin AST ALT Alkaline Phosphatase NT-Pro-B Natriuret Pep Total Protein Albumin Triglycerides Cholesterol LDL Cholesterol Direct HDL Direct Nasal MRSA (PCR) Not detected Syphilis IgG/IgM Ab Influenza A (RT-PCR) Negative Influenza B (RT-PCR) Negative RSV (RT-PCR) Negative SARS-CoV-2 RNA (RT-PCR) Negative 08/04/24 08/04/24 08/04/24 01:53 04:41 06:42 WBC 7.6 RBC 4.27 L Hgb 14.4 Hct 44.3 MCV 103.7 H MCH 33.7 MCHC 32.5 RDW 14.4 Plt Count 190 MPV 12.7 H PT INR APTT Sodium 132 L Potassium 3.7 Chloride 98 Carbon Dioxide 24 Anion Gap 10 BUN 23 H Creatinine 0.88 Estim Creat Clear Calc 88 Estimated GFR > 60 Glucose 102 POC Capillary Glucose 91 Hemoglobin A1c Lactic Acid 2.5 H 1.5 Calcium 8.1 L Magnesium 2.1 Total Bilirubin 3.2 H AST 472 H ALT 268 H Alkaline Phosphatase 128 H NT-Pro-B Natriuret Pep 91105 H Total Protein 5.8 L Albumin 3.3 L Triglycerides Cholesterol LDL Cholesterol Direct HDL Direct Nasal MRSA (PCR) Syphilis IgG/IgM Ab Influenza A (RT-PCR) Influenza B (RT-PCR) RSV (RT-PCR) SARS-CoV-2 RNA (RT-PCR) 08/04/24 08:38 WBC RBC Hgb Hct MCV MCH MCHC RDW Plt Count MPV PT 16.0 H INR 1.3 APTT 26.8 Sodium Potassium Chloride Carbon Dioxide Anion Gap BUN Creatinine Estim Creat Clear Calc Estimated GFR Glucose POC Capillary Glucose Hemoglobin A1c Lactic Acid Calcium Magnesium Total Bilirubin AST ALT Alkaline Phosphatase NT-Pro-B Natriuret Pep Total Protein Albumin Triglycerides Cholesterol LDL Cholesterol Direct HDL Direct Nasal MRSA (PCR) Syphilis IgG/IgM Ab Influenza A (RT-PCR) Influenza B (RT-PCR) RSV (RT-PCR) SARS-CoV-2 RNA (RT-PCR)
[2024-08-04 11:51] LABS: Glucose Point of Care 96 mg/dl (65-105)
[2024-08-04] MEDS: THIAMINE HCL 100 MG TABLET PO (12:48)
[2024-08-04] MEDS: FOLIC ACID 1 MG TABLET PO (12:48)
[2024-08-04 13:27] LABS: pH Pleural Fluid > 7.500 (7.210-7.500)
[2024-08-04 13:58] LABS: Appearance Pleural Fluid Hazy (Clear); Color Pleural Fluid Yellow (Colorless); Lymphocytes Pleural Fluid 46 %; Macrophages Pleural Fluid 13 %; Mesothelial Cells Pleural Flui 31 %; Monocytes Pleural Fluid 9 %; Neutrophils Pleural Fluid 1 % (0-25); Nucleated Cell Pleural Fluid 494 /uL (0-1000); Pleural fluid source Pleural fluid; RBC Pleural Fluid < 2000 /uL (0-10000)
[2024-08-04] MEDS: PERFLUTREN LIPID MICROSPHERES 1.5 ML VIAL DILUTED TO 10 ML TOTAL VOLUME IV PUSH (15:50)
--- NOTE | 2024-08-04 16:09 | IVDEFINITY ---
Prior to administration of IV Definity the patient was educated on the risks and benefits of the imaging enhancing agent including potential adverse side effects. The patient verbalized understanding. Allergies were verified. No exclusion criteria were identified and at least one of the following inclusion criteria were met: 1) physician request, 2) patient technically difficult to image (per the [place] [employer] guidelines of two or more segments not discernable within the apical view), or 3) questionable left ventricular function. ?
[2024-08-04] MEDS: levoFLOXacin 750 MG TABLET PO (16:26)
--- NOTE | 2024-08-04 17:31 | P.PNGI_ITS ---
Progress Note: A&P Assessment and Plan (1) Alcoholic hepatitis: Code(s): K70.10 - Alcoholic hepatitis without ascites Status: Acute Assessment and Plan: good appetite, no pain, no nausea liver enzymes coming down he understands that needs to stop drinking ciwa protocol, thiamine will follow as needed (2) Elevated liver enzymes: Code(s): R74.8 - Abnormal levels of other serum enzymes Status: Acute (3) Alcohol abuse: Code(s): F10.10 - Alcohol abuse, uncomplicated Status: Acute (4) Pleural effusion: Code(s): J90 - Pleural effusion, not elsewhere classified Status: Acute Assessment and Plan: better after thoracentesis (5) Pulmonary edema: Code(s): J81.1 - Chronic pulmonary edema Status: Acute (6) New onset of congestive heart failure: Code(s): I50.9 - Heart failure, unspecified Status: Acute Assessment and Plan: treated by cardilogy (7) Elevated troponin: Code(s): R79.89 - Other specified abnormal findings of blood chemistry Status: Acute Subjective Date/time seen: 08/04/24 17:31 Interval history: feeling better after thoracentesis, good appetite, no abdominal pain in good spirits Review of Systems Review of Systems: All systems reviewed & are unremarkable except as noted in HPI and below Exam Const: General: comfortable and no acute distress HENMT: Face/Nose/Sinus: Normal nares present Mouth: Yes moist mucous membranes Eyes: Sclera: sclerae normal Neck: Neck: supple Resp: Effort & Inspection: normal respiratory effort Auscultation: clear to auscultation bilaterally Cardio: Rate: regular rate Rhythm: regular rhythm Heart sounds: no murmurs GI: Inspection: non-distended GI Palp: Yes Soft to palpation and No Tenderness to palpation present (GI) Auscultation: normal bowel sounds Skin: General skin exam: normal color Neuro: Speech: normal speech Sensory Exam: normal sensation Extrem: General: edema Other: 1+ bilateral lower extremity edema Psych: Mental Status: mental status grossly abnormal Attitude: not belligerent Objective Data Vital Signs Vital Signs: Vital Signs - 24 hr 08/03/24 18:00 08/03/24 19:15 08/03/24 19:53 Temperature Pulse Rate 117 H 116 H Respiratory Rate 26 H Blood Pressure 116/95 H Pulse Oximetry 92 Oxygen Delivery Room Air 08/03/24 20:00 08/03/24 20:00 08/03/24 20:40 Temperature 97.5 F L Pulse Rate 118 H 120 H Respiratory Rate Blood Pressure Pulse Oximetry Oxygen Delivery 08/03/24 22:00 08/04/24 00:00 08/04/24 00:00 Temperature 97.6 F Pulse Rate 112 H 117 H 122 H Respiratory Rate 28 H Blood Pressure 128/97 H Pulse Oximetry 95 Oxygen Delivery 08/04/24 00:00 08/04/24 02:00 08/04/24 04:00 Temperature Pulse Rate 104 H Respiratory Rate Blood Pressure Pulse Oximetry Oxygen Delivery Room Air Room Air 08/04/24 04:00 08/04/24 04:00 08/04/24 06:00 Temperature 97.5 F L Pulse Rate 99 105 H 107 H Respiratory Rate 20 Blood Pressure 116/88 Pulse Oximetry 96 Oxygen Delivery 08/04/24 08:00 08/04/24 08:00 08/04/24 08:00 Temperature Pulse Rate 100 101 H 104 H Respiratory Rate 34 H 34 H Blood Pressure 129/84 Pulse Oximetry 94 94 Oxygen Delivery Room Air 08/04/24 08:45 08/04/24 10:00 08/04/24 11:40 Temperature 97.5 F L Pulse Rate 101 H 105 H 99 Respiratory Rate 28 H Blood Pressure 139/66 Pulse Oximetry 96 Oxygen Delivery 08/04/24 12:00 08/04/24 12:00 08/04/24 14:00 Temperature Pulse Rate 99 97 93 Respiratory Rate 28 H Blood Pressure Pulse Oximetry 96 Oxygen Delivery Room Air 08/04/24 16:00 08/04/24 16:00 08/04/24 16:00 Temperature 97.6 F Pulse Rate 97 97 96 Respiratory Rate 18 18 Blood Pressure 109/80 Pulse Oximetry 92 92 Oxygen Delivery Room Air Intake/Output Intake/Output: Intake & Output 08/01/24 08/02/24 08/03/24 08/04/24 23:59 23:59 23:59 23:59 Intake Total 1530 1370 Output Total 3900 Balance 1503 -3930 Meds/Results Medications: Active Medications Generic Name Dose Route Start Last Admin Trade Name Freq PRN Reason Stop Dose Admin Carvedilol 3.125 mg 08/03/24 21:00 08/04/24 08:45 Carvedilol 3.125 Mg Tablet PO 3.125 mg Q12HR EMILE Administration Chlordiazepoxide HCl 25 mg 08/03/24 20:35 08/04/24 12:48 Chlordiazepoxide (*Crx) 25 Mg Capsule PO 25 mg Q6HR EMILE Administration Dextrose 12.5 gm 08/03/24 15:42 Dextrose 50% 25 Gm/50 Ml Syringe IV PUSH PRN PRN Hypoglycemia Protocol Dicyclomine HCl 20 mg 08/03/24 11:34 Dicyclomine Hcl 10 Mg Capsule PO QID PRN Abdominal Cramping Enoxaparin Sodium 40 mg 08/04/24 09:00 Enoxaparin 40 Mg/0.4 Ml Syringe SUB-Q DAILY EMILE Folic Acid 1 mg 08/04/24 09:00 08/04/24 12:48 Folic Acid 1 Mg Tablet PO 1 mg DAILY EMILE Administration Furosemide 40 mg 08/05/24 09:00 Furosemide Inj 40 Mg/4 Ml Vial IV PUSH DAILY EMILE Glucagon 1 mg 08/03/24 15:42 Glucagon For Inj 1 Mg Vial IM PRN PRN Hypoglycemia Protocol Glucose 15 gm 08/03/24 15:42 Glucose Oral Gel 15 Gm Of Glucse In 37.5 Gm Tube PO PRN PRN Hypoglycemia Protocol Dextrose 1,000 mls @ 100 mls/hr 08/03/24 15:42 Dextrose 5% 1,000 Ml IVPB PRN PRN Hypoglycemia Protocol Levofloxacin 750 mg 08/04/24 15:00 08/04/24 16:26 Levofloxacin 750 Mg Tablet PO 08/08/24 15:01 750 mg DAILY@1500 EMILE Administration Lorazepam 2 mg 08/03/24 23:17 Lorazepam Inj (*Crx) 2 Mg/Ml Vial IV PUSH Q2H PRN CIWA > 15 Lorazepam 1 mg 08/03/24 23:17 08/04/24 08:45 Lorazepam Inj (*Crx) 2 Mg/Ml Vial IV PUSH 1 mg Q2H PRN Administration CIWA 8-15 Losartan Potassium 12.5 mg 08/04/24 09:00 08/04/24 08:45 Losartan Potassium 12.5 Mg Tablet PO 12.5 mg DAILY EMILE Administration Methocarbamol 500 mg 08/03/24 20:33 Methocarbamol 500 Mg Tablet PO QID PRN Muscle Spasm Naloxone HCl 0.1 mg 06/15/25 15:23 Naloxone Hcl 0.4 Mg/Ml Vial IV PUSH Q5MIN PRN Opiate Reversal Spironolactone 12.5 mg 08/05/24 09:00 Spironolactone 12.5 Mg Tablet PO QAM EMILE Thiamine HCl 100 mg 08/04/24 09:00 08/04/24 12:48 Thiamine Hcl 100 Mg Tablet PO 100 mg QAM EMILE Administration Radiology Results: ITS Impressions Chest/Abdomen/Pelvis CTA 08/03/24 06:31 Impression: Moderate to large right pleural effusion and moderate left pleural effusion. Patchy groundglass opacity and airspace consolidation. Lungs. Findings likely re present pulmonary edema. Correlate clinically for pneumonia. Severe hepatic steatosis. Questionable mild wall thickening sigmoid colon versus underdistention. Correlate for infectious/inflammatory colitis. Chest X-Ray 08/04/24 11:18 IMPRESSION: No acute cardiopulmonary pathology. Thoracentesis Ultrasound 08/04/24 11:24 IMPRESSION: 1. Successful ultrasound-guided thoracentesis yielding 1100 mL of clear yellow fluid. Abdomen Ultrasound 08/04/24 12:37 IMPRESSION: Fat infiltration of the liver. Contracted gallbladder with thickened wall. Cholecystitis cannot be excluded. Clinical correlation advised. Otherwise, normal limited abdominal ultrasound. Labs Labs: Laboratory Results - last 24 hr 08/03/24 08/03/24 08/04/24 17:40 23:58 01:53 WBC 7.6 RBC 4.27 L Hgb 14.4 Hct 44.3 MCV 103.7 H MCH 33.7 MCHC 32.5 RDW 14.4 Plt Count 190 MPV 12.7 H PT INR APTT Sodium 132 L Potassium 3.7 Chloride 98 Carbon Dioxide 24 Anion Gap 10 BUN 23 H Creatinine 0.88 Estim Creat Clear Calc 88 Estimated GFR > 60 Glucose 102 POC Capillary Glucose 109 H Lactic Acid 2.5 H Calcium 8.1 L Magnesium 2.1 Total Bilirubin 3.2 H AST 472 H ALT 268 H Alkaline Phosphatase 128 H NT-Pro-B Natriuret Pep 57953 H Total Protein 5.8 L Albumin 3.3 L Pleural Fluid Source Pleural Color Pleural Appearance Pleural pH Pleural RBC Pleural Nuc Cells Pleural Neutrophils Pleural Lymphocytes Pleural Monocytes Pleural Macrophages Pleural Mesothelial Nasal MRSA (PCR) Not detected Influenza A (RT-PCR) Negative Influenza B (RT-PCR) Negative RSV (RT-PCR) Negative SARS-CoV-2 RNA (RT-PCR) Negative 08/04/24 08/04/24 08/04/24 04:41 06:42 08:38 WBC RBC Hgb Hct MCV MCH MCHC RDW Plt Count MPV PT 16.0 H INR 1.3 APTT 26.8 Sodium Potassium Chloride Carbon Dioxide Anion Gap BUN Creatinine Estim Creat Clear Calc Estimated GFR Glucose POC Capillary Glucose 91 Lactic Acid 1.5 Calcium Magnesium Total Bilirubin AST ALT Alkaline Phosphatase NT-Pro-B Natriuret Pep Total Protein Albumin Pleural Fluid Source Pleural Color Pleural Appearance Pleural pH Pleural RBC Pleural Nuc Cells Pleural Neutrophils Pleural Lymphocytes Pleural Monocytes Pleural Macrophages Pleural Mesothelial Nasal MRSA (PCR) Influenza A (RT-PCR) Influenza B (RT-PCR) RSV (RT-PCR) SARS-CoV-2 RNA (RT-PCR) 08/04/24 08/04/24 10:39 11:42 WBC RBC Hgb Hct MCV MCH MCHC RDW Plt Count MPV PT INR APTT Sodium Potassium Chloride Carbon Dioxide Anion Gap BUN Creatinine Estim Creat Clear Calc Estimated GFR Glucose POC Capillary Glucose 96 Lactic Acid Calcium Magnesium Total Bilirubin AST ALT Alkaline Phosphatase NT-Pro-B Natriuret Pep Total Protein Albumin Pleural Fluid Source Pleural fluid Pleural Color Yellow Pleural Appearance Hazy Pleural pH > 7.500 H Pleural RBC < 2000 Pleural Nuc Cells 494 Pleural Neutrophils 1 Pleural Lymphocytes 46 Pleural Monocytes 9 Pleural Macrophages 13 Pleural Mesothelial 31 Nasal MRSA (PCR) Influenza A (RT-PCR) Influenza B (RT-PCR) RSV (RT-PCR) SARS-CoV-2 RNA (RT-PCR)
[2024-08-05] VITALS (11 sets, daily range): BP systolic 99–120; BP diastolic 60–74; PULSE 83–107; RESP 16–18; TEMP 36.5–36.8; O2SAT 97–100
[2024-08-05] MEDS: LORazepam INJ (*CRX) 2 MG/ML VIAL IV PUSH (02:27)
[2024-08-05] MEDS: chlordiazePOXIDE (*CRX) 25 MG CAPSULE PO ×2 (05:13→11:18)
[2024-08-05 07:55] LABS: Hematocrit 45.6 % (42.0-52.0); Hemoglobin 14.8 g/dL (14.0-18.0); Mean Corpuscular HGB Conc 32.5 g/dl (32-36); Mean Corpuscular Hemoglobin 33.7 pg (26-34); Mean Corpuscular Volume 103.9 fl (80-100); Platelet Count Result 175 k/mm3 (150-375); Red Blood Count 4.39 M/mm3 (4.6-6.20); Red Cell Distribution Width 14.2 % (11.5-14.5); White Blood Count 7.5 K/mm3 (4.5-10.0)
[2024-08-05 08:25] LABS: Alanine Aminotransferase 194 U/L (6-50); Albumin Level 2.9 g/dL (3.5-5.1); Alkaline Phosphatase 129 U/L (38-126); Anion Gap 6 mmol/L (4-12); Aspartate Amino Transferase 257 U/L (17-59); Bilirubin,Total 1.9 mg/dL (0.2-1.3); Blood Urea Nitrogen 21 mg/dL (9-20); Calcium 8.3 mg/dL (8.4-10.2); Carbon Dioxide 28 mmol/L (22-30); Chloride 100 mmol/L (98-107); Estimated CRCL calculation 96 ml/min; Estimated Glomerular Filt Rate > 60; Glucose 119 mg/dL (65-110); Magnesium 1.9 mg/dL (1.6-2.3); NT Pro B Type Natriuretic Pept 7340 pg/mL (19.9-100); Phosphorus 2.9 mg/dL (2.5-4.5); Potassium 3.3 mmol/L (3.4-5.0); Sodium 134 mmol/L (137-145); Total Protein 5.5 g/dL (6.3-8.2)
--- NOTE | 2024-08-05 08:47 | P.PNIM_ITS ---
Subjective Date/time seen: 08/05/24 08:47 Interval history: Will repeat CT scan tomorrow. Reviewed Pleural studies. Pending echo read. Objective Data Vital Signs Vital Signs: Vital Signs - 24 hr 08/04/24 10:00 08/04/24 11:40 08/04/24 12:00 Temperature 97.5 F L Pulse Rate 105 H 99 99 Pulse Rate [Bilateral Pedal (Dorsalis Pedis) Palpation] Respiratory Rate 28 H 28 H Blood Pressure 139/66 Pulse Oximetry 96 96 Oxygen Delivery Room Air 08/04/24 12:00 08/04/24 14:00 08/04/24 16:00 Temperature 97.6 F Pulse Rate 97 93 97 Pulse Rate [Bilateral Pedal (Dorsalis Pedis) Palpation] Respiratory Rate 18 Blood Pressure 109/80 Pulse Oximetry 92 Oxygen Delivery 08/04/24 16:00 08/04/24 16:00 08/04/24 18:00 Temperature Pulse Rate 97 96 109 H Pulse Rate [Bilateral Pedal (Dorsalis Pedis) Palpation] Respiratory Rate 18 Blood Pressure Pulse Oximetry 92 Oxygen Delivery Room Air 08/04/24 20:00 08/04/24 20:00 08/04/24 21:08 Temperature 97.3 F L Pulse Rate 100 101 H 102 H Pulse Rate [Bilateral Pedal (Dorsalis Pedis) Palpation] Respiratory Rate 20 Blood Pressure 107/54 L Pulse Oximetry 98 Oxygen Delivery 08/04/24 21:10 08/04/24 22:00 08/04/24 23:22 Temperature Pulse Rate 102 H 108 H 101 H Pulse Rate [Bilateral Pedal (Dorsalis Pedis) Palpation] Respiratory Rate 20 16 Blood Pressure Pulse Oximetry 98 98 Oxygen Delivery Room Air Room Air 08/04/24 23:25 08/05/24 00:00 08/05/24 02:00 Temperature 97.7 F Pulse Rate 110 H 99 98 Pulse Rate [Bilateral Pedal (Dorsalis Pedis) Palpation] Respiratory Rate 118 H Blood Pressure 105/76 Pulse Oximetry 100 Oxygen Delivery 08/05/24 02:26 08/05/24 03:29 08/05/24 04:00 Temperature 97.9 F Pulse Rate 101 H 101 H Pulse Rate [Bilateral Pedal (Dorsalis Pedis) Palpation] 98 Respiratory Rate 18 18 Blood Pressure 99/69 L Pulse Oximetry 100 100 Oxygen Delivery Room Air 08/05/24 04:00 08/05/24 06:00 08/05/24 08:00 Temperature 98.2 F Pulse Rate 104 H 96 83 Pulse Rate [Bilateral Pedal (Dorsalis Pedis) Palpation] Respiratory Rate 16 Blood Pressure 120/60 Pulse Oximetry 100 Oxygen Delivery Intake/Output Intake/Output: Intake & Output 08/02/24 08/03/24 08/04/24 08/05/24 23:59 23:59 23:59 23:59 Intake Total 1530 1370 550 Output Total 3900 Balance 1530 -2530 550 Meds/Results Medications: Active Medications Generic Name Dose Route Start Last Admin Trade Name Freq PRN Reason Stop Dose Admin Carvedilol 3.125 mg 08/03/24 21:00 08/04/24 21:08 Carvedilol 3.125 Mg Tablet PO 3.125 mg Q12HR EMILE Administration Chlordiazepoxide HCl 25 mg 08/03/24 20:35 08/05/24 05:13 Chlordiazepoxide (*Crx) 25 Mg Capsule PO 25 mg Q6HR EMILE Administration Dextrose 12.5 gm 08/03/24 15:42 Dextrose 50% 25 Gm/50 Ml Syringe IV PUSH PRN PRN Hypoglycemia Protocol Dicyclomine HCl 20 mg 08/03/24 11:34 Dicyclomine Hcl 10 Mg Capsule PO QID PRN Abdominal Cramping Enoxaparin Sodium 40 mg 08/04/24 09:00 Enoxaparin 40 Mg/0.4 Ml Syringe SUB-Q DAILY EMILE Folic Acid 1 mg 08/04/24 09:00 08/04/24 12:48 Folic Acid 1 Mg Tablet PO 1 mg DAILY EMILE Administration Furosemide 40 mg 08/05/24 09:00 Furosemide Inj 40 Mg/4 Ml Vial IV PUSH DAILY EMILE Glucagon 1 mg 08/03/24 15:42 Glucagon For Inj 1 Mg Vial IM PRN PRN Hypoglycemia Protocol Glucose 15 gm 08/03/24 15:42 Glucose Oral Gel 15 Gm Of Glucse In 37.5 Gm Tube PO PRN PRN Hypoglycemia Protocol Dextrose 1,000 mls @ 100 mls/hr 08/03/24 15:42 Dextrose 5% 1,000 Ml IVPB PRN PRN Hypoglycemia Protocol Levofloxacin 750 mg 08/04/24 15:00 08/04/24 16:26 Levofloxacin 750 Mg Tablet PO 08/08/24 15:01 750 mg DAILY@1500 EMILE Administration Lorazepam 2 mg 08/03/24 23:17 08/05/24 02:27 Lorazepam Inj (*Crx) 2 Mg/Ml Vial IV PUSH 2 mg Q2H PRN Administration CIWA > 15 Lorazepam 1 mg 08/03/24 23:17 08/04/24 08:45 Lorazepam Inj (*Crx) 2 Mg/Ml Vial IV PUSH 1 mg Q2H PRN Administration CIWA 8-15 Losartan Potassium 12.5 mg 08/04/24 09:00 08/04/24 08:45 Losartan Potassium 12.5 Mg Tablet PO 12.5 mg DAILY EMILE Administration Methocarbamol 500 mg 08/03/24 20:33 Methocarbamol 500 Mg Tablet PO QID PRN Muscle Spasm Naloxone HCl 0.1 mg 08/03/24 15:23 Naloxone Hcl 0.4 Mg/Ml Vial IV PUSH Q5MIN PRN Opiate Reversal Spironolactone 12.5 mg 08/05/24 09:00 Spironolactone 12.5 Mg Tablet PO QAM EMILE Thiamine HCl 100 mg 08/04/24 09:00 08/04/24 12:48 Thiamine Hcl 100 Mg Tablet PO 100 mg QAM EMILE Administration Radiology Results: ITS Impressions Chest/Abdomen/Pelvis CTA 08/03/24 06:31 Impression: Moderate to large right pleural effusion and moderate left pleural effusion. Patchy groundglass opacity and airspace consolidation. Lungs. Findings likely represent pulmonary edema. Correlate clinically for pneumonia. Severe hepatic steatosis. Questionable mild wall thickening sigmoid colon versus underdistention. Correlate for infectious/inflammatory colitis. Chest X-Ray 08/04/24 11:18 IMPRESSION: No acute cardiopulmonary pathology. Thoracentesis Ultrasound 08/04/24 11:24 IMPRESSION: 1. Successful ultrasound-guided thoracentesis yielding 1100 mL of clear yellow fluid. Abdomen Ultrasound 08/04/24 12:37 IMPRESSION: Fat infiltration of the liver. Contracted gallbladder with thickened wall. Cholecystitis cannot be excluded. Clinical correlation advised. Otherwise, luis m l limited abdominal ultrasound. Labs Labs: Laboratory Results - last 24 hr 08/04/24 08/04/24 08/04/24 08:38 10:39 11:42 WBC RBC Hgb Hct MCV MCH MCHC RDW Plt Count MPV PT 16.0 H INR 1.3 APTT 26.8 Sodium Potassium Chloride Carbon Dioxide Anion Gap BUN Creatinine Estim Creat Clear Calc Estimated GFR Glucose POC Capillary Glucose 96 Calcium Phosphorus Magnesium Total Bilirubin AST ALT Alkaline Phosphatase NT-Pro-B Natriuret Pep Total Protein Albumin Pleural Fluid Source Pleural fluid Pleural Color Yellow Pleural Appearance Hazy Pleural pH > 7.500 H Pleural RBC < 2000 Pleural Nuc Cells 494 Pleural Neutrophils 1 Pleural Lymphocytes 46 Pleural Monocytes 9 Pleural Macrophages 13 Pleural Mesothelial 31 08/05/24 07:48 WBC 7.5 RBC 4.39 L Hgb 14.8 Hct 45.6 MCV 103.9 H MCH 33.7 MCHC 32.5 RDW 14.2 Plt Count 175 MPV 12.0 H PT INR APTT Sodium 134 L Potassium 3.3 L Chloride 100 Carbon Dioxide 28 Anion Gap 6 BUN 21 H Creatinine 0.80 Estim Creat Clear Calc 96 Estimated GFR > 60 Glucose 119 H POC Capillary Glucose Calcium 8.3 L Phosphorus 2.9 Magnesium 1.9 Total Bilirubin 1.9 H AST 257 H ALT 194 H Alkaline Phosphatase 129 H NT-Pro-B Natriuret Pep 7340 H Total Protein 5.5 L Albumin 2.9 L Pleural Fluid Source Pleural Color Pleural Appearance Pleural pH Pleural RBC Pleural Nuc Cells Pleural Neutrophils Pleural Lymphocytes Pleural Monocytes Pleural Macrophages Pleural Mesothelial
[2024-08-05] MEDS: POTASSIUM CHLORIDE 20 MEQ ER TABLET 40 MEQ PO (09:11)
[2024-08-05] MEDS: carvediloL 3.125 MG TABLET PO (09:12)
[2024-08-05] MEDS: LOSARTAN POTASSIUM 12.5 MG TABLET PO (09:12)
[2024-08-05] MEDS: FUROSEMIDE INJ 40 MG/4 ML VIAL IV PUSH (09:12)
[2024-08-05] MEDS: THIAMINE HCL 100 MG TABLET PO (09:12)
[2024-08-05] MEDS: SPIRONOLACTONE 12.5 MG TABLET PO (09:12)
[2024-08-05] MEDS: FOLIC ACID 1 MG TABLET PO (09:12)
--- NOTE | 2024-08-05 12:51 | PC.NURSE ---
Patient left AMA. Patient educated on medications, withdrawal, chf, plan of care, and expectations several times during shift. Medications, withdrawal, signs and symptoms, and when to seek help discussed as before AMA paperwork signed. CIWA performed near time of AMA was 6.
--- NOTE | 2024-08-05 16:15 | PM.DS ---
DS: Admitting Diagnosis Discharge Date 08/05/24 Admitting Diagnosis Alcohol withdrawal DS: Discharge Diagnosis Discharge Diagnosis (1) Methamphetamine abuse: Code(s): F15.10 - Other stimulant abuse, uncomplicated Status: Acute (2) Alcohol abuse: Code(s): F10.10 - Alcohol abuse, uncomplicated Status: Acute (3) New onset of congestive heart failure: Code(s): I50.9 - Heart failure, unspecified Status: Acute (4) Elevated troponin: Code(s): R79.89 - Other specified abnormal findings of blood chemistry Status: Acute (5) Alcoholic hepatitis: Code(s): K70.10 - Alcoholic hepatitis without ascites Status: Acute (6) Elevated liver enzymes: Code(s): R74.8 - Abnormal levels of other serum enzymes Status: Acute Plan Alcohol Withdrawal CIWA score in ED Thiamine and folic acid Librium taper Gentle fluid resuscitate Lorazepam 2 mg q.4 hours p.r.n. for seizure Lorazepam 2 mg q.6 hours p.r.n. for CIWA score greater than 8 Consider Hydroxyzine 50 mg p.o. q.6 hours p.r.n. for anxiety Bentyl 20 mg p.o. q.6 hours p.r.n. for abdominal discomfort Methocarbamol 750 mg p.o. q.6 hours p.r.n. for muscle spasm Consider Catapres 0.1 mg p.o. q.2 hours p.r.n. for heart/cold sweats or anxiety. Hold if BP less than 90/60 Monitor development of withdrawal symptoms Monitor LFTs Order ultrasound abdomen Hypoglycemic med protocol CBC and CMP including Mag and phos Trend AST ALT Hepatitis panel pending Alcohol level 93 UDS results Chest Pain Trend troponin Echo pending Furosemide increased 20 to 40 mg IV q.d. Carvedilol 3.125 mg p.o. b.i.d. Losartan 2.5 mg p.o. q.d. Cardiology consult PNA/pleural effusion Underwent thoracentesis and removed 1 L from right pleural space. Vital signs improved and stable RSV COVID flu pending Discontinue Zosyn Started on levofloxacin monitor cultures MRSA pending encourage oral intake Chest/abdomen/pelvis CTA: Moderate to large right pleural effusion and moderate left pleural effusion. Patchy groundglass opacity and airspace consolidation. Lungs. Findings likely represent pulmonary edema. Correlate clinically for pneumonia. Severe hepatic steatosis. Questionable mild wall thickening sigmoid colon versus underdistention. Correlate for infectious/inflammatory colitis. Elevated lft Possibly due to alcohol GI consulted DVT prophylaxis Lovenox 40 mg subcutaneous daily Code status: Full code DS: Summary Hospital Course Hospital Course: Patient is a 39-year-old male no significant past medical history visited ER due to shortness of breath, pedal edema. As per ED document patient was in the normal state of health until about 3 weeks ago and started having bad cough associated with shortness of breath, swelling to his leg and some to his abdomen. Pertinent ED labs: WBC 11.3, hemoglobin 15, hematocrit 46.5, MCV 102.9, platelet 280, sodium 132, potassium 4.3, chloride 96, bicarb 20 LFT: AST 697, ALT 352, alkaline phosphate 149, total bili 3.5 Troponin: 0.071> 0.073< 0.069 BNP: 00498 UDS positive for amphetamine Patient is admitted in the setting of elevated troponin, alcohol withdrawal, pedal edema. Patient probably has undiagnosed heart failure possibly due to alcohol abuse and methamphetamine use. Patient reports a recently she had a cough which is associated with shortness of breath. Patient denies using IV drugs for past 9-10 years. In regards to elevated troponin cardiology was consulted and ordered echocardiogram and further management according to the results of echocardiogram. Also patient is started on furosemide 20 mg IV q.d., losartan 12.5 mg p.o. q.d. and carvedilol 3.125 p.o. b.i.d, . He patient drinks vodka daily about 15 to 20 small bottles. Patient started on in tapering dose of Librium and CIWA triggered Ativan. In regards to elevated LFT GI is consulted. Elevation of the liver enzymes consistent with the alcoholism. Cardiology evaluated the patient. Pending echo read. GI was consulted due to elevated LFTs possibly due to alcoholism. Patient left AMA Time Spent with Patient Time attestation: Total time spent providing and/or coordinating discharge services: Exam Narrative: He is confused but does awaken and answers a few questions but goes back to sleep. Appears stated age Const: General: comfortable and no acute distress HENMT: Face/Nose/Sinus: Normal nares present Mouth: Yes moist mucous membranes Eyes: Sclera: sclerae normal Neck: Neck: supple and no JVD Chest: Other: No reproducible chest wall pain to palpation Resp: Effort & Inspection: normal respiratory effort Auscultation: clear to auscultation bilaterally Cardio: Rate: regular rate Rhythm: regular rhythm Heart sounds: no murmurs GI: Inspection: non-distended Auscultation: normal bowel sounds Skin: General skin exam: normal color Neuro: Cranial nerves: Yes Normal hearing present Speech: normal speech and Abnormal speech present Sensory Exam: normal sensation Extrem: General: edema Other: 1+ bilateral lower extremity edema Psych: Mental Status: mental status grossly abnormal Attitude: not belligerent DS: Data Data Completed and Pending Completed studies during hospitalization: Pending at discharge 08/03/24 11:37 Cytology [PTH] Routine Labs on day of discharge: Labs from last 24 hours 08/05/24 07:48 WBC 7.5 RBC 4.39 L Hgb 14.8 Hct 45.6 MCV 103.9 H MCH 33.7 MCHC 32.5 RDW 14.2 Plt Count 175 MPV 12.0 H Sodium 134 L Potassium 3.3 L Chloride 100 Carbon Dioxide 28 Anion Gap 6 BUN 21 H Creatinine 0.80 Estim Creat Clear Calc 96 Estimated GFR > 60 Glucose 119 H Calcium 8.3 L Phosphorus 2.9 Magnesium 1.9 Total Bilirubin 1.9 H AST 257 H ALT 194 H Alkaline Phosphatase 129 H NT-Pro-B Natriuret Pep 7340 H Total Protein 5.5 L Albumin 2.9 L Preliminary micro results at discharge 08/03/24 02:42 Blood Culture - Preliminary Blood 08/03/24 02:45 Blood Culture - Preliminary Blood Discharge Plan Discharge Consulting providers: Marcello Schwab; Blake Jara; Darrel Braga Patient Disposition: Left Against Medical Advice Patient Instructions: Heart Failure (DC), Abuse of Alcohol (DC), Methamphetamine Use Disorder (DC), Alcohol Withdrawal (DC) Patient Language: [place] Discharge Medications: No Action No Home Medications Date of admission: 08/04/24 10:38 Primary Care Provider: PHYSICIAN,[employer]ICATOR Admitting Provider: Sergio Sterling Attending physician on admission: Sergio Sterling Condition: Serious
[2024-08-08 21:44] LABS: Albumin Pleural Fluid. 0.6 g/dL; Glucose Pleural Fluid. 101 mg/dL; LDH Pleural Fluid. 170 U/L; Total Protein Pleural Fluid <3.0 g/dL
== END 2024-08-05 12:19 | disposition left against medical advice (07) | DRG 194 ==
LOC: ANHED 06:52 → ANHIMU 10:54
PROVIDERS: Physician Assistant; Admitting Provider Internal Medicine; Emergency Provider Emergency Medicine; Visit Provider General Practice
DX: I50.21 Acute systolic (congestive) heart failure (principal); J90 Pleural effusion, not elsewhere classified; J18.9 Pneumonia, unspecified organism; E87.20 Acidosis, unspecified; K70.10 Alcoholic hepatitis without ascites; K21.9 Gastro-esophageal reflux disease without esophagitis; F10.139 Alcohol abuse with withdrawal, unspecified; F10.10 Alcohol abuse, uncomplicated; F17.290 Nicotine dependence, other tobacco product, uncomplicated; F15.10 Other stimulant abuse, uncomplicated; Z20.822 Contact with and (suspected) exposure to COVID-19
CPT/HCPCS: 32555; 36415; 71045; 71275; 74177; 76705; 80053; 80061; 80074; 80307; 82042; 82077; 82140; 82150; 82945; 82948; 83036; 83605; 83615; 83735; 83880; 83986; 84100; 84157; 84484; 85025; 85027; 85610; 85730; 86593; 86703; 87040; 87205; 87637; 87641; 88108; 88305; 88342; 89051; 93005; 94640; 96365; 96366; 96367; 96374; 96375; 96376; 99285; A9270; C8929; G0378; G0379; G0432; J0692; J1938; J2060; J2560; J3370; J7030; Q9957; Q9967